=== PATIENT | female | born 1980 | race Caucasian/White ===

== ENCOUNTER 2016-07-29 07:34 | Emergency (ER) | payer OTHER ==
--- NOTE | 2016-07-29 08:26 | XR ---
EXAMINATION TYPE: XR chest 2V DATE OF EXAM ORDERED: 07/29/2016 8:22 AM HISTORY: cough. REFERENCE: Previous study dated 04/24/2015. FINDINGS: The lungs are clear. Pleural spaces are clear. Heart size is normal. IMPRESSION: NORMAL CHEST.
--- NOTE | 2016-07-29 09:00 | ED ---
General Adult HPI - General Chief complaint: Upper Respiratory Infection Stated complaint: cough Time Seen by Provider: 07/29/16 08:07 Source: patient, RN notes reviewed Mode of arrival: ambulatory Limitations: no limitations - History of Present Illness Initial comments: Patient 35-year-old female who presents emergency room today with a chief complaint of cough congestion over the last 3 days. Does admit to positive sputum production it's been white in color. Denies any other complaints associated symptoms. Patient denies any recent fever, chills, shortness of breath, chest pain, back pain, abdominal pain, nausea or vomiting, numbness or tingling, dysuria or hematuria, constipation or diarrhea, headaches or visual changes, or any other complaints. - Related Data Home Medications Medication Instructions Recorded Confirmed Levothyroxine Sodium [Synthroid] 88 mcg PO DAILY 03/01/16 07/29/16 Previous Rx's Medication Instructions Recorded Benzonatate [Tessalon Perles] 100 mg PO TID PRN #20 capsule 07/29/16 methylPREDNISolone Dose Pack 4 mg PO DIRECTED #21 package 07/29/16 [Medrol Dose Pack] Allergies Allergy/AdvReac Type Severity Reaction Status Date / Time sulfamethoxazole Allergy Mild Unknown Verified 03/01/16 23:21 [From Bactrim] trimethoprim [From Bactrim] Allergy Mild Unknown Verified 03/01/16 23:21 aspirin Allergy Rash/Hives Verified 03/01/16 23:20 cefixime [From Suprax] Allergy Unknown Verified 03/01/16 23:20 hydrocodone bitartrate Allergy Rash/Hives Verified 03/01/16 23:20 [From Vicodin] influenza virus vaccine, Allergy Nausea & Verified 03/01/16 23:20 specific Vomiting & [Influenza Virus Diarrhea Vacc,Specific] latex Allergy Rash/Hives Verified 03/01/16 23:20 morphine Allergy Dyspnea Verified 03/01/16 23:20 Sulfa (Sulfonamide Allergy Unknown Verified 03/01/16 23:20 Antibiotics) tesiorganon Allergy Unknown Uncoded 03/01/16 23:20 Childhood Review of Systems ROS Statement: Those systems with pertinent positive or pertinent negative responses have been documented in the HPI. ROS Other: All systems not noted in ROS Statement are negative. Past Medical History Past Medical History: No Reported History, Thyroid Disorder History of Any Multi-Drug Resistant Organisms: None Reported Past Surgical History: Section, Hysterectomy Past Psychological History: Depression Smoking Status: Never smoker Past Alcohol Use History: None Reported Past Drug Use History: Marijuana General Exam - General Exam Comments Initial Comments: General: The patient is awake and alert, in no distress, and does not appear acutely ill. Eye: Pupils are equal, round and reactive to light, extra-ocular movements are intact. No nystagmus. There is normal conjunctiva bilaterally. No signs of icterus. Ears, nose, mouth and throat: There are moist mucous membranes and no oral lesions. Neck: The neck is supple, there is no tenderness or JVD. Cardiovascular: There is a regular rate and rhythm. No murmur, rub or gallop is appreciated. Respiratory: Lungs are clear to auscultation, respirations are non-labored, breath sounds are equal. No wheezes, stridor, rales, or rhonchi. Musculoskeletal: Normal ROM, no tenderness. Strength 5/5. Sensation intact. Pulses equal bilaterally 2+. Neurological: A&O x 3. CN II-XII intact, There are no obvious motor or sensory deficits. Coordination appears grossly intact. Speech is normal. Skin: Skin is warm and dry and no rashes or lesions are noted. Psychiatric: Cooperative, appropriate mood & affect, normal judgment. Limitations: no limitations Course Vital Signs 07/29/16 07/29/16 07:37 07:49 Temperature 98.4 F Pulse Rate 76 Respiratory 18 18 Rate Blood Pressure 113/55 O2 Sat by Pulse 99 Oximetry Medical Decision Making - Medical Decision Making X-ray reviewed and shows no signs of pneumonia. No other acute abnormalities. Advised patient most likely a viral illness will be started on a steroid Dosepak along with cough suppressant for her symptoms. Disposition Clinical Impression: Acute bronchitis Disposition: HOME SELF-CARE Condition: Good Instructions: Upper Respiratory Infection (ED) Additional Instructions: Please use medication as discussed. Please follow-up with family doctor in the next 2 days of symptoms have not improved. Please return to emergency room if the symptoms increase or worsen or for any other concerns. Prescriptions: Benzonatate [Tessalon Perles] 100 mg PO TID PRN #20 capsule PRN Reason: Cough methylPREDNISolone Dose Pack [Medrol Dose Pack] 4 mg PO DIRECTED #21 package Time of Disposition: 09:00
[2016-07-29 09:11] VITALS: BP 128/63; PULSE 71; RESP 16; TEMP 97
== END 2016-07-29 09:08 | disposition home or self-care (01) ==
LOC: EC 07:34
DX: J20.9 Acute bronchitis, unspecified (principal); J06.9 Acute upper respiratory infection, unspecified; E07.9 Disorder of thyroid, unspecified; Z79.52 Long term (current) use of systemic steroids; Z88.2 Allergy status to sulfonamides; Z88.6 Allergy status to analgesic agent; Z88.1 Allergy status to other antibiotic agents; Z88.8 Allergy status to other drugs, medicaments and biological substances; Z88.7 Allergy status to serum and vaccine; Z91.040 Latex allergy status; Z88.5 Allergy status to narcotic agent
CPT/HCPCS: 71020; 99283

== ENCOUNTER 2017-02-20 13:43 | Emergency (ER) | payer OTHER ==
[2017-02-20 14:33] LABS: Basophils # (A) 0.1 k/uL (0-0.2); Basophils % (A) 1 %; CH 32.3; CHCM 36.1; Eosinophils # (A) 0.2 k/uL (0-0.7); Eosinophils % (A) 2 %; HCT 42.1 % (34.0-46.0); HDW 2.55; HGB 14.5 gm/dL (11.4-16.0); Luc # (Auto) 0.14; Luc % (Auto) 2; Lymphocytes # (A) 2.2 k/uL (1.0-4.8); Lymphocytes % (A) 25 %; MCHC 34.5 g/dL (31.0-37.0); MCV 89.7 fL (80.0-100.0); Mean Platelet Volume 7.7; Monocytes # (A) 0.4 k/uL (0-1.0); Monocytes % (A) 5 %; Neutrophils # (A) 5.7 k/uL (1.3-7.7); Neutrophils % (A) 65 %; RBC 4.69 m/uL (3.80-5.40); RDW 12.8 % (11.5-15.5); WBC 8.7 k/uL (3.8-10.6); WBC (Perox) 8.36
--- NOTE | 2017-02-20 14:33 | ED ---
Dizziness HPI - General Chief Complaint: Dizziness Stated Complaint: Dizziness Time Seen by Provider: 02/20/17 13:53 Source: patient Mode of arrival: ambulatory Limitations: no limitations - History of Present Illness Initial Comments: This patient is a 36-year-old woman who complains of having what she is describing as dizziness, including a sense of instability and like the room is spinning. She states this been going on for 1 week. She feels that it is getting a little bit worse over that interval. She did see her clinic physician and was given a prescription for Antivert and told that she has vertigo. She states that it feels like the Antivert makes the symptoms get worse so she stopped taking that. Patient denies any preceding trauma or upper respiratory symptoms. She denies any other neurologic symptoms, including no change in vision or hearing, trouble with speech or swallowing, weakness or numbness. Patient denies headache. MD Complaint: dizziness Onset/Timin -: week(s) Timing: gradual onset Description: "room spinning" History of Same: No History of Trauma: No Severity: moderate Improves With: nothing Worsens With: other (Medication) Associated Symptoms: denies other symptoms - Related Data Home Medications Medication Instructions Recorded Confirmed Levothyroxine Sodium [Synthroid] 88 mcg PO HS 03/01/16 02/20/17 Ibuprofen [Motrin] 600 mg PO DAILY PRN 02/20/17 02/20/17 Ranitidine HCl [Zantac] 150 mg PO DAILY PRN 02/20/17 02/20/17 Allergies Allergy/AdvReac Type Severity Reaction Status Date / Time sulfamethoxazole Allergy Mild Unknown Verified 02/20/17 14:57 [From Bactrim] trimethoprim [From Bactrim] Allergy Mild Unknown Verified 02/20/17 14:57 aspirin Allergy Rash/Hives Verified 02/20/17 14:57 cefixime [From Suprax] Allergy Unknown Verified 02/20/17 14:57 hydrocodone bitartrate Allergy Rash/Hives Verified 02/20/17 14:57 [From Vicodin] influenza virus vaccine, Allergy Nausea & Verified 02/20/17 14:57 specific Vomiting & [Influenza Virus Diarrhea Vacc,Specific] latex Allergy Rash/Hives Verified 02/20/17 14:57 morphine Allergy Dyspnea Verified 02/20/17 14:57 Sulfa (Sulfonamide Allergy Unknown Verified 02/20/17 14:57 Antibiotics) tesiorganon Allergy Unknown Uncoded 02/20/17 13:50 Childhood Review of Systems ROS Statement: Those systems with pertinent positive or pertinent negative responses have been documented in the HPI. ROS Other: All systems not noted in ROS Statement are negative. Constitutional: Denies: fever, chills, weakness Eyes: Denies: vision change ENT: Denies: ear pain, congestion Respiratory: Denies: cough, dyspnea Cardiovascular: Denies: chest pain, palpitations, syncope Gastrointestinal: Denies: abdominal pain, vomiting Musculoskeletal: Denies: back pain Skin: Denies: rash Neurological: Reports: vertigo. Denies: headache, weakness, numbness, paresthesias, confusion Past Medical History Past Medical History: Thyroid Disorder Additional Past Medical History / Comment(s): vertigo History of Any Multi-Drug Resistant Organisms: None Reported Past Surgical History: Section, Hysterectomy Past Psychological History: Anxiety Smoking Status: Never smoker Past Alcohol Use History: None Reported Past Drug Use History: None Reported General Exam Limitations: no limitations General appearance: alert, in no apparent distress Head exam: Present: atraumatic, normocephalic, normal inspection Eye exam: Present: normal appearance, PERRL, EOMI. Absent: scleral icterus, conjunctival injection, nystagmus ENT exam: Present: normal oropharynx, TM's normal bilaterally Neck exam: Present: normal inspection Respiratory exam: Present: normal lung sounds bilaterally. Absent: respiratory distress, wheezes, rales, rhonchi, stridor Cardiovascular Exam: Present: regular rate, normal rhythm, normal heart sounds. Absent: systolic murmur, diastolic murmur, rubs, gallop GI/Abdominal exam: Present: soft. Absent: distended, tenderness, guarding, rebound, rigid, mass Extremities exam: Present: normal inspection, normal capillary refill. Absent: pedal edema, calf tenderness Back exam: Present: normal inspection. Absent: CVA tenderness (R), CVA tenderness (L) Neurological exam: Present: alert, CN II-XII intact. Absent: motor sensory deficit Skin exam: Present: warm, dry, intact, normal color. Absent: rash Course Vital Signs 02/20/17 02/20/17 02/20/17 13:47 14:47 15:25 Temperature 98.7 F 98.2 F Pulse Rate 91 78 Pulse Rate [ 75 Sitting] Pulse Rate [ 93 Standing] Pulse Rate [ 71 Supine] Respiratory 18 16 Rate Blood Pressure 136/84 115/66 Blood Pressure 111/70 [Sitting] Blood Pressure 118/86 [Standing] Blood Pressure 115/67 [Supine] O2 Sat by Pulse 97 96 Oximetry EKG Findings - EKG Results: EKG: interpreted by PRINCESS ALBERT (rate 78), sinus rhythm, normal axis, normal QRS, normal ST/T, no acute changes - [place], Pacemaker, Normal: Normal tracing: normal tracing Medical Decision Making - Lab Data Result diagrams: 02/20/17 14:19 02/20/17 14:19 Lab Results 02/20/17 02/20/17 Range/Units 14:19 14:19 WBC 8.7 (3.8-10.6) k/uL RBC 4.69 (3.80-5.40) m/uL Hgb 14.5 (11.4-16.0) gm/dL Hct 42.1 (34.0-46.0) % MCV 89.7 (80.0-100.0) fL MCH 31.0 (25.0-35.0) pg MCHC 34.5 (31.0-37.0) g/dL RDW 12.8 (11.5-15.5) % Plt Count 283 (150-450) k/uL Neutrophils % 65 % Lymphocytes % 25 % Monocytes % 5 % Eosinophils % 2 % Basophils % 1 % Neutrophils # 5.7 (1.3-7.7) k/uL Lymphocytes # 2.2 (1.0-4.8) k/uL Monocytes # 0.4 (0-1.0) k/uL Eosinophils # 0.2 (0-0.7) k/uL Basophils # 0.1 (0-0.2) k/uL Sodium 140 (137-145) mmol/L Potassium 3.9 (3.5-5.1) mmol/L Chloride 105 (98-107) mmol/L Carbon Dioxide 26 (22-30) mmol/L Anion Gap 9 mmol/L BUN 10 (7-17) mg/dL Creatinine 0.85 (0.52-1.04) mg/dL Est GFR (MDRD) Af Amer >60 (>60 ml/min/1.73 sqM) Est GFR (MDRD) Non-Af >60 (>60 ml/min/1.73 sqM) Glucose 103 H (74-99) mg/dL Calcium 9.6 (8.4-10.2) mg/dL Total Bilirubin 0.4 (0.2-1.3) mg/dL AST 21 (14-36) U/L ALT 38 (9-52) U/L Alkaline Phosphatase 56 (38-126) U/L Total Protein 7.0 (6.3-8.2) g/dL Albumin 4.1 (3.5-5.0) g/dL TSH 3.030 (0.465-4.680) mIU/L Disposition Clinical Impression: Vertigo Disposition: HOME SELF-CARE Condition: Fair Instructions: Dizziness (ED) Referrals: Felicita Mondragon MD [Primary Care Provider] - 1-2 days Jordy Webster MD [STAFF PHYSICIAN] - 1-2 days
[2017-02-20 14:46] LABS: ALT 38 U/L (9-52); AST 21 U/L (14-36); Alkaline Phosphatase 56 U/L (38-126); Anion Gap 9 mmol/L; Blood Urea Nitrogen 10 mg/dL (7-17); Calcium 9.6 mg/dL (8.4-10.2); Carbon Dioxide 26 mmol/L (22-30); Chloride 105 mmol/L (98-107); Glucose 103 mg/dL (74-99); Non-African American GFR(MDRD) >60 (>60 ml/min/1.73 sqM); Potassium 3.9 mmol/L (3.5-5.1); Sodium 140 mmol/L (137-145); Total Bilirubin 0.4 mg/dL (0.2-1.3)
--- NOTE | 2017-02-20 15:11 | CT ---
EXAMINATION TYPE: CT brain wo con DATE OF EXAM: 02/20/2017 COMPARISON: NONE HISTORY: 36-year-old female Lightheadedness and dizziness x 1 week. TECHNIQUE: Examination was done in axial plane without intravenous contrast. Coronal and sagittal r econstructions performed. CT DLP: 987.00 mGycm Automated exposure control for dose reduction was used. FINDINGS: There is no evidence of acute intracranial hemorrhage, acute ischemic changes, mass, mass-effect, or extra-axial fluid collection. There is no effacement of cerebral sulci or basal subarachnoid cister ns. There is no hydrocephalus. There is no midline shift. Hong-white matter distinction is preserv ed. Paranasal sinuses and mastoid air cells are well pneumatized. Orbits and globes are intact. IMPRESSION: No acute intracranial abnormality seen.
[2017-02-20 15:26] VITALS: BP 115/66; PULSE 78; RESP 16; TEMP 98.2
== END 2017-02-20 16:04 | disposition home or self-care (01) ==
LOC: EC 13:43
DX: R42 Dizziness and giddiness (principal); E07.9 Disorder of thyroid, unspecified; Z79.899 Other long term (current) drug therapy; Z88.2 Allergy status to sulfonamides; Z88.7 Allergy status to serum and vaccine; Z88.6 Allergy status to analgesic agent; Z88.5 Allergy status to narcotic agent; Z88.8 Allergy status to other drugs, medicaments and biological substances
CPT/HCPCS: 36415; 70450; 80053; 84443; 85025; 93005; 99284

== ENCOUNTER → 2019-06-15 | Outpatient (CLI) | payer OTHER ==
--- NOTE | 2019-06-15 11:13 | XR ---
EXAMINATION TYPE: XR shoulder complete LT DATE OF EXAM: 06/15/2019 COMPARISON: NONE HISTORY: Pain TECHNIQUE: Two views are submitted. FINDINGS: The osseous structures are intact. There is no acute fracture or dislocation. The AC joint is maint ained. IMPRESSION: 1. No acute process.
== END | disposition home or self-care (01) ==
LOC: RADXRMAIN 10:50
PROVIDERS: ATTEND Internal Medicine
DX: M25.512 Pain in left shoulder (principal)

== ENCOUNTER → 2019-06-25 | Outpatient (CLI) | payer OTHER ==
--- NOTE | 2019-06-25 20:01 | MR ---
EXAMINATION TYPE: MR shoulder LT wo con DATE OF EXAM: 06/25/2019 COMPARISON: Plain film 06/15/2019 HISTORY: Lt shoulder pain x 1 mos, no trauma TECHNIQUE: Multiplanar, multisequence imaging of the left shoulder is performed without contrast. FINDINGS: Rotator Cuff: There is no serenity tear. Increased signal within the tendon is suggestive of tendinosis. Acromioclavicular Joint: Arthropathy is present at the acromioclavicular joint, there is mass effect on the musculotendinous junction of supraspinatus Glenohumeral Joint: Intact Labrum: The labrum appears grossly intact given limitation of non-arthrogram study. Biceps Tendon: The long head of biceps is in normal location within bicipital groove. Bone marrow signal: No focal abnormal marrow signal is appreciated. Other: Fluid signal is present in the subacromial subdeltoid bursa. IMPRESSION: No serenity rotator cuff tear, correlate for impingement with associated tendinosis of the rotator cuff.
== END | disposition home or self-care (01) ==
LOC: RADMRIMAIN 18:45
PROVIDERS: ATTEND Internal Medicine
DX: M25.512 Pain in left shoulder (principal)

== ENCOUNTER → 2019-12-14 | Outpatient (CLI) | payer OTHER ==
[2019-12-14 13:33] LABS: HCT 43.9 % (34.0-46.0); HGB 14.5 gm/dL (11.4-16.0); MCH 30.3 pg (25.0-35.0); MCV 92.1 fL (80.0-100.0); Mean Platelet Volume 8.1; Platelet Count 294 k/uL (150-450); RBC 4.77 m/uL (3.80-5.40); RDW 11.9 % (11.5-15.5); WBC 7.9 k/uL (3.8-10.6)
[2019-12-14 17:41] LABS: Albumin/Globulin Ratio 1.67 (1.60-3.17); Anion Gap 5.9 mmol/L (4.00-12.00); Calcium 8.9 mg/dL (8.7-10.3); Carbon Dioxide 28.1 mmol/L (21.6-31.8); Globulin 2.4 g/dL (1.6-3.3); Non-African American GFR(CKD) 79.4 (60.0-200.0); Potassium 4.3 mmol/L (3.5-5.5); Total Bilirubin 0.5 mg/dL (0.2-1.2); Total Protein 6.4 g/dL (6.2-8.2)
[2019-12-14 17:49] LABS: T4, Free (Free Thyroxine) 0.8 ng/dL (0.80-1.80)
== END | disposition home or self-care (01) ==
LOC: LABWHC1 12:24
PROVIDERS: ATTEND Internal Medicine
DX: E03.9 Hypothyroidism, unspecified (principal); R41.3 Other amnesia
CPT/HCPCS: 36415; 80053; 82607; 84439; 84443; 85027

== ENCOUNTER 2020-01-13 18:27 | Emergency (ER) | payer OTHER ==
[2020-01-13] MEDS ORDERED: ACETAMINOPHEN TAB 500 MG TAB PO STA ×2 (18:43→19:44)
[2020-01-13] MEDS ORDERED: SODIUM CHLORIDE 0.9% 1,000 ML IV ONE (18:44)
[2020-01-13] MEDS ORDERED: ONDANSETRON 4 MG/2 ML VIAL IVP STA (18:44)
[2020-01-13 19:15] VITALS: TEMP 100.3
--- NOTE | 2020-01-13 19:26 | XR ---
EXAMINATION TYPE: XR chest 1V portable DATE OF EXAM: 01/13/2020 COMPARISON: 07/29/2016 HISTORY: Cough TECHNIQUE: FINDINGS: Heart and mediastinum are normal. Lungs are clear. Diaphragm is normal. Bony thorax appears normal. IMPRESSION: Normal chest. No change.
[2020-01-13 19:27] LABS: Basophils # (A) 0.1 k/uL (0-0.2); Basophils % (A) 1 %; Eosinophils # (A) 0.1 k/uL (0-0.7); Eosinophils % (A) 2 %; HCT 39.2 % (34.0-46.0); HGB 13.4 gm/dL (11.4-16.0); Lymphocytes # (A) 2.1 k/uL (1.0-4.8); Lymphocytes % (A) 32 %; MCH 30.8 pg (25.0-35.0); MCHC 34.2 g/dL (31.0-37.0); Mean Platelet Volume 7.5; Monocytes # (A) 0.3 k/uL (0-1.0); Monocytes % (A) 4 %; Neutrophils # (A) 3.7 k/uL (1.3-7.7); Neutrophils % (A) 56 %; Platelet Count 178 k/uL (150-450); RBC 4.35 m/uL (3.80-5.40); RDW 12.2 % (11.5-15.5); WBC 6.5 k/uL (3.8-10.6)
[2020-01-13 19:36] LABS: Partial Thromboplastin Time 23.4 sec (22.0-30.0); Prothrombin Time 10.6 sec (9.0-12.0)
[2020-01-13 19:42] LABS: ALT 49 U/L (4-34); AST 40 U/L (14-36); African American GFR (CKD) >90 (>60 ml/min/1.73 sqM); Albumin 4.1 g/dL (3.5-5.0); Alkaline Phosphatase 59 U/L (38-126); Anion Gap 6 mmol/L; Blood Urea Nitrogen 15 mg/dL (7-17); C Reactive Protein 15.8 mg/L (<10.0); Calcium 8.6 mg/dL (8.4-10.2); Carbon Dioxide 27 mmol/L (22-30); Chloride 101 mmol/L (98-107); Glucose 105 mg/dL (74-99); LDH 776 U/L (313-618); Non-African American GFR(CKD) 87 (>60 ml/min/1.73 sqM); Potassium 3.7 mmol/L (3.5-5.1); Sodium 134 mmol/L (137-145); Total Bilirubin 0.8 mg/dL (0.2-1.3)
[2020-01-13] MEDS ORDERED: IBUPROFEN 600 MG TAB PO STA (19:44)
--- NOTE | 2020-01-13 19:55 | ED ---
General Adult HPI - General Chief complaint: Fever Stated complaint: Fever, shortness of breath, body aches Time Seen by Provider: 01/13/20 18:38 Source: patient, RN notes reviewed, old records reviewed Mode of arrival: ambulatory Limitations: no limitations - History of Present Illness Initial comments: Patient is a 39-year-old female who presents emergency department today with fever., Chest pain with breathing and burning in her chest, complaining of body aches and shortness of breath. She reports she is a nonsmoker. She reports that she has no known contact with positive coated patient's but she believes she has the symptoms. She does complain occasional diarrhea and a sore throat and general body aches. Patient states that she has been having low-grade temperatures and taking Motrin and Tylenol. - Related Data Home Medications Medication Instructions Recorded Confirmed Levothyroxine Sodium [Synthroid] 88 mcg PO HS 03/01/16 02/20/17 Ibuprofen [Motrin] 600 mg PO DAILY PRN 02/20/17 02/20/17 Ranitidine HCl [Zantac] 150 mg PO DAILY PRN 02/20/17 02/20/17 Allergies Allergy/AdvReac Type Severity Reaction Status Date / Time sulfamethoxazole Allergy Mild Unknown Verified 01/13/20 18:31 [From Bactrim] trimethoprim [From Bactrim] Allergy Mild Unknown Verified 01/13/20 18:31 aspirin Allergy Rash/Hives Verified 01/13/20 18:31 cefixime [From Suprax] Allergy Unknown Verified 01/13/20 18:31 hydrocodone bitartrate Allergy Rash/Hives Verified 01/13/20 18:31 [From Vicodin] influenza virus vaccine, Allergy Nausea & Verified 01/13/20 18:31 specific Vomiting & [Influenza Virus Diarrhea Vacc,Specific] latex Allergy Rash/Hives Verified 01/13/20 18:31 morphine Allergy Dyspnea Verified 01/13/20 18:31 Sulfa (Sulfonamide Allergy Unknown Verified 01/13/20 18:31 Antibiotics) tesiorganon Allergy Unknown Uncoded 01/13/20 18:31 Childhood Review of Systems ROS Statement: Those systems with pertinent positive or pertinent negative responses have been documented in the HPI. ROS Other: All systems not noted in ROS Statement are negative. Past Medical History Past Medical History: Thyroid Disorder Additional Past Medical History / Comment(s): vertigo History of Any Multi-Drug Resistant Organisms: None Reported Past Surgical History: Section, Hysterectomy Past Psychological History: Anxiety Smoking Status: Never smoker Past Alcohol Use History: None Reported Past Drug Use History: None Reported General Exam - General Exam Comments Initial Comments: 39-year-old female. Alert and oriented. Limitations: no limitations General appearance: alert, in no apparent distress Head exam: Present: atraumatic, normocephalic, normal inspection Eye exam: Present: normal appearance, PERRL, EOMI. Absent: scleral icterus, conjunctival injection, periorbital swelling ENT exam: Present: normal exam, mucous membranes moist Neck exam: Present: normal inspection. Absent: tenderness, meningismus, lym phadenopathy Respiratory exam: Present: normal lung sounds bilaterally. Absent: respiratory distress, wheezes, rales, rhonchi, stridor Cardiovascular Exam: Present: regular rate, normal rhythm, normal heart sounds. Absent: systolic murmur, diastolic murmur, rubs, gallop, clicks GI/Abdominal exam: Present: soft, normal bowel sounds. Absent: distended, tenderness, guarding, rebound, rigid Extremities exam: Present: normal inspection, full ROM, normal capillary refill. Absent: tenderness, pedal edema, joint swelling, calf tenderness Back exam: Present: normal inspection Neurological exam: Present: alert, oriented X3, CN II-XII intact Psychiatric exam: Present: normal affect Skin exam: Present: warm, dry, intact, normal color. Absent: rash Course Vital Signs 01/13/20 01/13/20 01/13/20 18:29 19:14 20:30 Temperature 98.9 F 100.3 F H Pulse Rate 83 71 Respiratory 20 18 Rate Blood Pressure 107/68 115/69 O2 Sat by Pulse 99 Oximetry Medical Decision Making - Medical Decision Making 39-year-old female presents with 5 days of fever, malaise nausea, and burning c hest pain taking a deep breath. Patient has no leg swelling, she has been around public as she works at [employer]. She states that she is concerned for possible Covid. She reports her family members have similar symptoms but they're Covid test was negative. Patient is given IV fluids labwork obtained. She was found to have a low-grade temperature of 100.3 was given Tylenol Motrin. Patient's really has a mildly elevated CRP and LDH. Discussed likely possible COVID at this time. Discussed self quarantine. Discussed strict return parameters. - Lab Data Result diagrams: 01/13/20 19:02 01/13/20 19: Lab Results 01/13/20 01/13/20 01/13/20 Range/Units 19:02 19: 19: WBC 6.5 (3.8-10.6) k/uL RBC 4.35 (3.80-5.40) m/uL Hgb 13.4 (11.4-16.0) gm/dL Hct 39.2 (34.0-46.0) % MCV 90.0 (80.0-100.0) fL MCH 30.8 (25.0-35.0) pg MCHC 34.2 (31.0-37.0) g/dL RDW 12.2 (11.5-15.5) % Plt Count 178 (150-450) k/uL Neutrophils % 56 % Lymphocytes % 32 % Monocytes % 4 % Eosinophils % 2 % Basophils % 1 % Neutrophils # 3.7 (1.3-7.7) k/uL Lymphocytes # 2.1 (1.0-4.8) k/uL Monocytes # 0.3 (0-1.0) k/uL Eosinophils # 0.1 (0-0.7) k/uL Basophils # 0.1 (0-0.2) k/uL PT 10.6 (9.0-12.0) sec INR 1.0 (<1.2) APTT 23.4 (22.0-30.0) sec Sodium 134 L (137-145) mmol/L Potassium 3.7 (3.5-5.1) mmol/L Chloride 101 (98-107) mmol/L Carbon Dioxide 27 (22-30) mmol/L Anion Gap 6 mmol/L BUN 15 (7-17) mg/dL Creatinine 0.84 (0.52-1.04) mg/dL Est GFR (CKD-EPI)AfAm >90 (>60 ml/min/1.73 sqM) Est GFR (CKD-EPI)NonAf 87 (>60 ml/min/1.73 sqM) Glucose 105 H (74-99) mg/dL Plasma Lactic Acid Tito (0.7-2.0) mmol/L Calcium 8.6 (8.4-10.2) mg/dL Magnesium 2.0 (1.6-2.3) mg/dL Total Bilirubin 0.8 (0.2-1.3) mg/dL AST 40 H (14-36) U/L ALT 49 H (4-34) U/L Alkaline Phosphatase 59 (38-126) U/L Lactate Dehydrogenase 776 H (313-618) U/L C-Reactive Protein 15.8 H (<10.0) mg/L Total Protein 7.0 (6.3-8.2) g/dL Albumin 4.1 (3.5-5.0) g/dL 01/13/20 Range/Units 19:02 WBC (3.8-10.6) k/uL RBC (3.80-5.40) m/uL Hgb (11.4-16.0) gm/dL Hct (34.0-46.0) % MCV (80.0-100.0) fL MCH (25.0-35.0) pg MCHC (31.0-37.0) g/dL RDW (11.5-15.5) % Plt Count (150-450) k/uL Neutrophils % % Lymphocytes % % Monocytes % % Eosinophils % % Basophils % % Neutrophils # (1.3-7.7) k/uL Lymphocytes # (1.0-4.8) k/uL Monocytes # (0-1.0) k/uL Eosinophils # (0-0.7) k/uL Basophils # (0-0.2) k/uL PT (9.0-12.0) sec INR (<1.2) APTT (22.0-30.0) sec Sodium (137-145) mmol/L Potassium (3.5-5.1) mmol/L Chloride (98-107) mmol/L Carbon Dioxide (22-30) mmol/L Anion Gap mmol/L BUN (7-17) mg/dL Creatinine (0.52-1.04) mg/dL Est GFR (CKD-EPI)AfAm (>60 ml/min/1.73 sqM) Est GFR (CKD-EPI)NonAf (>60 ml/min/1.73 sqM) Glucose (74-99) mg/dL Plasma Lactic Acid Tito 0.7 (0.7-2.0) mmol/L Calcium (8.4-10.2) mg/dL Magnesium (1.6-2.3) mg/dL Total Bilirubin (0.2-1.3) mg/dL AST (14-36) U/L ALT (4-34) U/L Alkaline Phosphatase (38-126) U/L Lactate Dehydrogenase (313-618) U/L C-Reactive Protein (<10.0) mg/L Total Protein (6.3-8.2) g/dL Albumin (3.5-5.0) g/dL 01/13/20 19:58 EKG shows normal sinus rhythm and normal EKG. Ventricular rate of 80 bpm. Intervals 1:30 milliseconds. QRS duration was 84 ms. QT QTc is 370/426 ms. - Radiology Data Radiology results: report reviewed Chest x-ray is negative for any acute cardiopulmonary process. Disposition Clinical Impression: Suspected COVID-19 virus infection Disposition: HOME SELF-CARE Condition: Good Instructions (If sedation given, give patient instructions): Fever in Adults (ED) Additional Instructions: Alternate Tylenol and Motrin for fever. Patient should follow up with primary care physician. Patient should self quarantined for 14 days. Return to emergency department if there becomes worsening difficulty breathing or other significant complaints. Is patient prescribed a controlled substance at d/c from ED?: No Referrals: Nereyda Diaz MD [Primary Care Provider] - 1-2 days Time of Disposition: 20:21
[2020-01-13 20:33] VITALS: BP 115/69; PULSE 71; RESP 18
[2020-01-14 13:11] LABS: Ferritin 387.2 ng/mL (10.0-291.0)
== END 2020-01-13 20:32 | disposition home or self-care (01) ==
LOC: EC 18:27
DX: R50.9 Fever, unspecified (principal); R11.0 Nausea; R53.81 Other malaise; R12 Heartburn; R79.82 Elevated C-reactive protein (CRP); R07.1 Chest pain on breathing; E07.9 Disorder of thyroid, unspecified; Z79.890 Hormone replacement therapy; Z88.2 Allergy status to sulfonamides; Z88.5 Allergy status to narcotic agent; Z88.6 Allergy status to analgesic agent; Z88.7 Allergy status to serum and vaccine; Z88.8 Allergy status to other drugs, medicaments and biological substances; Z91.040 Latex allergy status; Z20.828 Contact with and (suspected) exposure to other viral communicable diseases
CPT/HCPCS: 99284; 96374; 96361; 36415; 93005; 80053; 82728; 83605; 83615; 83735; 85025; 85610; 85730; 86140; 87040; 84145; 71045; U0003; J2405

== ENCOUNTER 2020-01-20 10:00 | Emergency (ER) | payer OTHER ==
[2020-01-20 10:11] VITALS: RESP 18
[2020-01-20] MEDS ORDERED: ACETAMINOPHEN TAB 325 MG TAB PO STA (10:15)
[2020-01-20] MEDS ORDERED: IBUPROFEN 600 MG TAB PO STA (10:15)
--- NOTE | 2020-01-20 10:38 | ED ---
Fever HPI - General Chief Complaint: Fever Stated Complaint: fever, body aches Time Seen by Provider: 01/20/20 10:15 Source: patient Mode of arrival: ambulatory Limitations: no limitations - History of Present Illness Initial Comments: 39-year-old female presenting today for chief complaint of fever or nausea. Patient states that she has had nausea and fever for the past week. She states she also has accompanying body aches. Patient denies any localizing pain. She denies any vomiting diarrhea denies chest pain or shortness of breath. Patient denies sore throat, cough or URI symptoms. Denies RLQ, or RUQ pain. Patient states entire body aches. Patient states she used to have history of thyroid disorder. Patient denies any other significant history. Patient presented last week for evaluation and had a fever. States they could not figure out what was wrong and covid testing was (-). Patient states at one point during this week she began to feel better but the fever returned. Upon arrival patient appears well nontoxic, no distress. She is febrile and did not take any medications. - Related Data Home Medications Medication Instructions Recorded Confirmed Acetaminophen [Tylenol] 650 mg PO Q4H PRN 01/20/20 01/20/20 Ibuprofen [Advil] 400 mg PO Q8HR PRN 01/20/20 01/20/20 SUMAtriptan succinate [Imitrex] 50 mg PO DAILY PRN 01/20/20 01/20/20 Allergies Allergy/AdvReac Type Severity Reaction Status Date / Time sulfamethoxazole Allergy Mild Unknown Verified 01/20/20 10:43 [From Bactrim] trimethoprim [From Bactrim] Allergy Mild Unknown Verified 01/20/20 10:43 aspirin Allergy Rash/Hives Verified 01/20/20 10:43 cefixime [From Suprax] Allergy Unknown Verified 01/20/20 10:43 hydrocodone bitartrate Allergy Rash/Hives Verified 01/20/20 10:43 [From Vicodin] influenza virus vaccine, Allergy Nausea & Verified 01/20/20 10:43 specific Vomiting & [Influenza Virus Diarrhea Vacc,Specific] latex Allergy Rash/Hives Verified 01/20/20 10:43 morphine Allergy Dyspnea Verified 01/20/20 10:43 Sulfa (Sulfonamide Allergy Unknown Verified 01/20/20 10:43 Antibiotics) tesiorganon Allergy Unknown Uncoded 01/13/20 18:31 Childhood Review of Systems ROS Statement: Those systems with pertinent positive or pertinent negative responses have been documented in the HPI. ROS Other: All systems not noted in ROS Statement are negative. Past Medical History Past Medical History: Thyroid Disorder Additional Past Medical History / Comment(s): vertigo History of Any Multi-Drug Resistant Organisms: None Reported Past Surgical History: Section, Hysterectomy Past Psychological History: Anxiety Smoking Status: Never smoker Past Alcohol Use History: None Reported Past Drug Use History: None Reported General Exam - General Exam Comments Initial Comments: General: The patient is awake and alert, in no distress Eye: +3 mm pupils are equal, round and reactive to light, extra-ocular movements are intact. No nystagmus. There is normal conjunctiva bilaterally. No signs of icterus. No photophobia Ears, nose, mouth and throat: There are moist mucous membranes and no oral lesions. Oropharynx was not erythematous there is no tonsillar enlargement exudates or lesions. Uvula midline. Tympanic membranes are not erythematous or is no effusions bulging or retraction. No tenderness to palpation of the mastoid. No anterior cervical lymphadenopathy. Rhinorrhea, clear and bilateral nares. No tripoding, no drooling. Neck: The neck is supple, there is no tenderness or JVD. No nuchal rigidity negative Brudzinski and Kernig Cardiovascular: There is a regular rate and rhythm. No murmur, rub or gallop is appreciated. Respiratory: Lungs are clear to auscultation, respirations are non-labored, breath sounds are equal. No wheezes, stridor, rales, or rhonchi. No retractions or abdominal breathing. Gastrointestinal: Soft, non-distended, non-tender abdomen without masses or organomegaly noted. There is no rebound or guarding present. Bowel sounds are unremarkable. Musculoskeletal: Normal ROM, no tenderness. Strength 5/5. Sensation intact. Radial pulses equal bilaterally 2+. Neurological: A&O x 3. CN II-XII intact grossly, There are no obvious motor or sensory deficits. Coordination appears grossly intact. Speech appears normal, no muffling. Skin: Skin is warm and dry and no rashes or lesions are noted. No extremity edema Psychiatric: Cooperative Limitations: no limitations Course Vital Signs 08/09/20 08/09/20 08/09/20 10:09 11:20 14:11 Temperature 100.2 F H 97 F L 98.5 F Pulse Rate 91 98 87 Respiratory 18 18 Rate Blood Pressure 104/66 116/73 O2 Sat by Pulse 98 96 Oximetry Medical Decision Making - Medical Decision Making 19-year-old feel presenting today for chief complaint of fever body aches ongoing for a week. She denies significant upper respiratory symptoms denies any focalizing symptoms aside from nausea. Patient no right upper quadrant right lower quadrant abdominal pain patient did have some transaminitis, US (-) for liver/GB process aside from fatty liver. Heterophile (-) Hepatitis A (-). Patient states her entire body hurts including head neck but states not localzed to neck no neck stiffnes. no nuchal rigidity on exam. Patient LEDBETTER resolved with ibuprofen and tylenol. Patient case and EKg reviewd with attenidng provider Dr. Peterson who is agreeable to care plan and discharge with PCP f/u. Ventricular rate 97 bpm, FL interval 118 ms, QRS durations 74 ms, QT/QTC 346/439ms. Patient has no ST elevation or depression. - Lab Data Result diagrams: 01/20/20 11:00 01/20/20 11:00 Lab Results 01/20/20 01/20/20 01/20/20 Range/Units 11:00 11:00 11:00 WBC 6.8 (3.8-10.6) k/uL RBC 4.34 (3.80-5.40) m/uL Hgb 13.1 (11.4-16.0) gm/dL Hct 38.9 (34.0-46.0) % MCV 89.5 (80.0-100.0) fL MCH 30.1 (25.0-35.0) pg MCHC 33.6 (31.0-37.0) g/dL RDW 12.9 (11.5-15.5) % Plt Count 209 (150-450) k/uL Neutrophils % 60 % Lymphocytes % 30 % Monocytes % 4 % Eosinophils % 2 % Basophils % 1 % Neutrophils # 4.1 (1.3-7.7) k/uL Lymphocytes # 2.1 (1.0-4.8) k/uL Monocytes # 0.3 (0-1.0) k/uL Eosinophils # 0.1 (0-0.7) k/uL Basophils # 0.1 (0-0.2) k/uL Sodium 136 L (137-145) mmol/L Potassium 4.2 (3.5-5.1) mmol/L Chloride 104 (98-107) mmol/L Carbon Dioxide 24 (22-30) mmol/L Anion Gap 8 mmol/L BUN 13 (7-17) mg/dL Creatinine 0.75 (0.52-1.04) mg/dL Est GFR (CKD-EPI)AfAm >90 (>60 ml/min/1.73 sqM) Est GFR (CKD-EPI)NonAf >90 (>60 ml/min/1.73 sqM) Glucose 120 H (74-99) mg/dL Plasma Lactic Acid Tito (0.7-2.0) mmol/L Calcium 8.7 (8.4-10.2) mg/dL Total Bilirubin 0.8 (0.2-1.3) mg/dL AST 57 H (14-36) U/L ALT 92 H (4-34) U/L Alkaline Phosphatase 68 (38-126) U/L Troponin I (0.000-0.034) ng/mL Total Protein 6.8 (6.3-8.2) g/dL Albumin 4.0 (3.5-5.0) g/dL TSH 3.880 (0.465-4.680) mIU/L Urine Color Yellow Urine Appearance Clear (Clear) Urine pH 8.0 (5.0-8.0) Ur Specific [place] 1.023 (1.001-1.035) Urine Protein Trace H (Negative) Urine Glucose (UA) Negative (Negative) Urine Ketones Negative (Negative) Urine Blood Negative (Negative) Urine Nitrite Negative (Negative) Urine Bilirubin Negative (Negative) Urine Urobilinogen <2.0 (<2.0) mg/dL Ur Leukocyte Esterase Negative (Negative) Hepatitis A IgM Ab Heterophile Antibody (Negative) 01/20/20 01/20/20 01/20/20 Range/Units 11:00 11:00 11:00 WBC (3.8-10.6) k/uL RBC (3.80-5.40) m/uL Hgb (11.4-16.0) gm/dL Hct (34.0-46.0) % MCV (80.0-100.0) fL MCH (25.0-35.0) pg MCHC (31.0-37.0) g/dL RDW (11.5-15.5) % Plt Count (150-450) k/uL Neutrophils % % Lymphocytes % % Monocytes % % Eosinophils % % Basophils % % Neutrophils # (1.3-7.7) k/uL Lymphocytes # (1.0-4.8) k/uL Monocytes # (0-1.0) k/uL Eosinophils # (0-0.7) k/uL Basophils # (0-0.2) k/uL Sodium (137-145) mmol/L Potassium (3.5-5.1) mmol/L Chloride (98-107) mmol/L Carbon Dioxide (22-30) mmol/L Anion Gap mmol/L BUN (7-17) mg/dL Creatinine (0.52-1.04) mg/dL Est GFR (CKD-EPI)AfAm (>60 ml/min/1.73 sqM) Est GFR (CKD-EPI)NonAf (>60 ml/min/1.73 sqM) Glucose (74-99) mg/dL Plasma Lactic Acid Tito 0.9 (0.7-2.0) mmol/L Calcium (8.4-10.2) mg/dL Total Bilirubin (0.2-1.3) mg/dL AST (14-36) U/L ALT (4-34) U/L Alkaline Phosphatase (38-126) U/L Troponin I <0.012 (0.000-0.034) ng/mL Total Protein (6.3-8.2) g/dL Albumin (3.5-5.0) g/dL TSH (0.465-4.680) mIU/L Urine Color Urine Appearance (Clear) Urine pH (5.0-8.0) Ur Specific [place] (1.001-1.035) Urine Protein (Negative) Urine Glucose (UA) (Negative) Urine Ketones (Negative) Urine Blood (Negative) Urine Nitrite (Negative) Urine Bilirubin (Negative) Urine Urobilinogen (<2.0) mg/dL Ur Leukocyte Esterase (Negative) Hepatitis A IgM Ab Heterophile Antibody Negative (Negative) 01/20/20 Range/Units 11:48 WBC (3.8-10.6) k/uL RBC (3.80-5.40) m/uL Hgb (11.4-16.0) gm/dL Hct (34.0-46.0) % MCV (80.0-100.0) fL MCH (25.0-35.0) pg MCHC (31.0-37.0) g/dL RDW (11.5-15.5) % Plt Count (150-450) k/uL Neutrophils % % Lymphocytes % % Monocytes % % Eosinophils % % Basophils % % Neutrophils # (1.3-7.7) k/uL Lymphocytes # (1.0-4.8) k/uL Monocytes # (0-1.0) k/uL Eosinophils # (0-0.7) k/uL Basophils # (0-0.2) k/uL Sodium (137-145) mmol/L Potassium (3.5-5.1) mmol/L Chloride (98-107) mmol/L Carbon Dioxide (22-30) mmol/L Anion Gap mmol/L BUN (7-17) mg/dL Creatinine (0.52-1.04) mg/dL Est GFR (CKD-EPI)AfAm (>60 ml/min/1.73 sqM) Est GFR (CKD-EPI)NonAf (>60 ml/min/1.73 sqM) Glucose (74-99) mg/dL Plasma Lactic Acid Tito (0.7-2.0) mmol/L Calcium (8.4-10.2) mg/dL Total Bilirubin (0.2-1.3) mg/dL AST (14-36) U/L ALT (4-34) U/L Alkaline Phosphatase (38-126) U/L Troponin I (0.000-0.034) ng/mL Total Protein (6.3-8.2) g/dL Albumin (3.5-5.0) g/dL TSH (0.465-4.680) mIU/L Urine Color Urine Appearance (Clear) Urine pH (5.0-8.0) Ur Specific [place] (1.001-1.035) Urine Protein (Negative) Urine Glucose (UA) (Negative) Urine Ketones (Negative) Urine Blood (Negative) Urine Nitrite (Negative) Urine Bilirubin (Negative) Urine Urobilinogen (<2.0) mg/dL Ur Leukocyte Esterase (Negative) Hepatitis A IgM Ab NEGATIVE Heterophile Antibody (Negative) Disposition Clinical Impression: Fever of unknown origin, Body aches Disposition: HOME SELF-CARE Condition: Good Instructions (If sedation given, give patient instructions): Fever in Adults (ED) Additional Instructions: Please use medication as discussed. Please follow-up with family doctor in the next 2 days. Please return to emergency room if the symptoms increase or worsen or for any other concerns. Is patient prescribed a controlled substance at d/c from ED?: No Referrals: Nereyda Diaz MD [Primary Care Provider] - 1-2 days Time of Disposition: 13:23
[2020-01-20 11:07] LABS: Basophils # (A) 0.1 k/uL (0-0.2); Basophils % (A) 1 %; Eosinophils # (A) 0.1 k/uL (0-0.7); Eosinophils % (A) 2 %; HCT 38.9 % (34.0-46.0); HGB 13.1 gm/dL (11.4-16.0); Lymphocytes # (A) 2.1 k/uL (1.0-4.8); Lymphocytes % (A) 30 %; MCH 30.1 pg (25.0-35.0); MCHC 33.6 g/dL (31.0-37.0); MCV 89.5 fL (80.0-100.0); Mean Platelet Volume 7.6; Monocytes # (A) 0.3 k/uL (0-1.0); Monocytes % (A) 4 %; Neutrophils # (A) 4.1 k/uL (1.3-7.7); Neutrophils % (A) 60 %; Platelet Count 209 k/uL (150-450); RBC 4.34 m/uL (3.80-5.40); RDW 12.9 % (11.5-15.5); WBC 6.8 k/uL (3.8-10.6)
[2020-01-20 11:12] LABS: Appearance,Urine Clear (Clear); Bilirubin,Urine Negative (Negative); Blood,Urine Negative (Negative); Color,Urine Yellow; Glucose,Urine (UA) Negative (Negative); Ketones,Urine Negative (Negative); Leukocyte Esterase,Urine Negative (Negative); Nitrite,Urine Negative (Negative); Protein,Urine Trace (Negative); Specific Gravity,Urine 1.023 (1.001-1.035); Urobilinogen,Urine <2.0 mg/dL (<2.0)
[2020-01-20 11:15] LABS: ALT 92 U/L (4-34); AST 57 U/L (14-36); African American GFR (CKD) >90 (>60 ml/min/1.73 sqM); Alkaline Phosphatase 68 U/L (38-126); Anion Gap 8 mmol/L; Blood Urea Nitrogen 13 mg/dL (7-17); Calcium 8.7 mg/dL (8.4-10.2); Carbon Dioxide 24 mmol/L (22-30); Chloride 104 mmol/L (98-107); Glucose 120 mg/dL (74-99); Non-African American GFR(CKD) >90 (>60 ml/min/1.73 sqM); Potassium 4.2 mmol/L (3.5-5.1); Sodium 136 mmol/L (137-145); Total Bilirubin 0.8 mg/dL (0.2-1.3); Total Protein 6.8 g/dL (6.3-8.2)
[2020-01-20] MEDS ORDERED: ONDANSETRON 4 MG/2 ML VIAL IVP STA (11:22)
--- NOTE | 2020-01-20 11:30 | XR ---
EXAMINATION TYPE: XR chest 2V DATE OF EXAM: 01/20/2020 CLINICAL HISTORY: Fever, nausea, body aches TECHNIQUE: Frontal and lateral views of the chest are obtained. COMPARISON: 01/13/2020 chest radiograph FINDINGS: The cardiomediastinal silhouette is within normal limits for size. Pulmonary vasculature i s normal. There is no focal air space opacity, pleural effusion, or pneumothorax seen. The osseous st ructures are intact. IMPRESSION: No acute cardiopulmonary process.
[2020-01-20 12:46] LABS: Hepatitis A Antibody IgM NEGATIVE
--- NOTE | 2020-01-20 13:14 | US ---
EXAMINATION TYPE: US abdomen limited DATE OF EXAM: 01/20/2020 COMPARISON: NONE CLINICAL HISTORY: Enzymes increased, fever. EXAM MEASUREMENTS: Liver Length: 13.1 cm Gallbladder Wall: 0.3cm CBD: 04 cm Right Kidney: 11.5 x 3.6 x 4.9 cm Pancreas: visualized portions normal Liver: Increased attenuation. Gallbladder: No stones seen. No evidence of gallbladder wall thickening or pericholecystic fluid. Sonography reports negative sonographic Gotti's sign. CBD: Normal. Right Kidney: Normal. IMPRESSION: 1. Fatty liver.
[2020-01-20 14:12] VITALS: BP 116/73; PULSE 87; TEMP 98.5
[2020-01-21 10:56] LABS: Hepatitis B Core IgM Non-Reactive (Non-Reactive); Hepatitis B Surface Antigen Non-Reactive (Non-Reactive); Hepatitis C IgG Antibody Non-Reactive (Non-Reactive)
== END 2020-01-20 14:12 | disposition home or self-care (01) ==
LOC: EC 10:00
DX: R50.9 Fever, unspecified (principal); R52 Pain, unspecified; R11.0 Nausea; R74.0 Nonspecific elevation of levels of transaminase and lactic acid dehydrogenase [LDH]; K76.0 Fatty (change of) liver, not elsewhere classified; Z88.2 Allergy status to sulfonamides; Z88.6 Allergy status to analgesic agent; Z91.040 Latex allergy status; Z88.5 Allergy status to narcotic agent; Z88.1 Allergy status to other antibiotic agents; Z88.7 Allergy status to serum and vaccine; Z90.710 Acquired absence of both cervix and uterus; Z20.828 Contact with and (suspected) exposure to other viral communicable diseases
CPT/HCPCS: 36415; 93005; 80053; 80074; 84443; 83605; 84484; 85025; 86308; 81003; 87040; 71046; 76705; 99284; 96374; U0003; J2405

== ENCOUNTER 2020-02-06 06:56 | Emergency (ER) | payer OTHER ==
[2020-02-06 07:02] VITALS: RESP 18
[2020-02-06] MEDS ORDERED: PANTOPRAZOLE 40 MG/10 ML VIAL IVP STA (07:16)
[2020-02-06] MEDS ORDERED: KETOROLAC 15 MG/ML 1 ML VIAL IVP STA (07:16)
[2020-02-06] MEDS ORDERED: ONDANSETRON 4 MG/2 ML VIAL IVP STA (07:16)
[2020-02-06] MEDS ORDERED: SODIUM CHLORIDE 0.9% 2,000 ML IV STA (07:16)
--- NOTE | 2020-02-06 07:18 | ED ---
Abdominal Pain HPI - General Chief Complaint: Abdominal Pain Stated Complaint: NVD,Headache Time Seen by Provider: 02/06/20 07:08 Source: patient, RN notes reviewed, old records reviewed Mode of arrival: ambulatory Limitations: no limitations - History of Present Illness Initial Comments: Patient is a 39-year-old female who presents emergency department today with chief complaint of abdominal pain nausea and diarrhea for the past 4 weeks. She also states that she has had pressure with laying down. Patient states that she has had no vomiting but is some has feel nauseated. Patient denies any travel history. She seen twice in the emergency department for this complaint of diarrhea as well as seen her PCP twice. She states that they did plain have her follow-up with a academic intern however she's not been able to set up an appointment at this time. Patient denies any fevers or chills at this time. - Related Data Home Medications Medication Instructions Recorded Confirmed Ibuprofen [Advil] 400 mg PO Q6H PRN 01/20/20 02/06/20 Acetaminophen Tab [Tylenol Tab] 1,000 mg PO Q6HR PRN 02/06/20 02/06/20 Ondansetron HCl [Zofran] 4 mg PO BID PRN 02/06/20 02/06/20 Previous Rx's Medication Instructions Recorded Amoxic-Pot Clav 875-125Mg 1 tab PO Q12HR #20 tablet 02/06/20 [Augmentin 875-125] Allergies Allergy/AdvReac Type Severity Reaction Status Date / Time sulfamethoxazole Allergy Mild Unknown Verified 02/06/20 08:01 [From Bactrim] trimethoprim [From Bactrim] Allergy Mild Unknown Verified 02/06/20 08:01 aspirin Allergy Rash/Hives Verified 02/06/20 08:01 cefixime [From Suprax] Allergy Unknown Verified 02/06/20 08:01 hydrocodone bitartrate Allergy Rash/Hives Verified 02/06/20 08:01 [From Vicodin] influenza virus vaccine, Allergy Nausea & Verified 02/06/20 08:01 specific Vomiting & [Influenza Virus Diarrhea Vacc,Specific] latex Allergy Rash/Hives Verified 02/06/20 08:01 morphine Allergy Dyspnea Verified 02/06/20 08:01 Sulfa (Sulfonamide Allergy Unknown Verified 02/06/20 08:01 Antibiotics) tesiorganon Allergy Unknown Uncoded 02/06/20 07:02 Childhood Review of Systems ROS Statement: Those systems with pertinent positive or pertinent negative responses have been documented in the HPI. ROS Other: All systems not noted in ROS Statement are negative. Past Medical History Past Medical History: Thyroid Disorder Additional Past Medical History / Comment(s): vertigo History of Any Multi-Drug Resistant Organisms: None Reported Past Surgical History: Section, Hysterectomy Past Psychological History: Anxiety Smoking Status: Never smoker Past Alcohol Use History: None Reported Past Drug Use History: None Reported General Exam - General Exam Comments Initial Comments: 39 year old female, no distress. Limitations: no limitations General appearance: alert, in no apparent distress Head exam: Present: atraumatic, normocephalic, normal inspection Eye exam: Present: normal appearance, PERRL, EOMI. Absent: scleral icterus, conjunctival injection, periorbital swelling ENT exam: Present: normal exam, mucous membranes moist Neck exam: Present: normal inspection. Absent: tenderness, meningismus, lymphadenopathy Respiratory exam: Present: normal lung sounds bilaterally. Absent: respiratory distress, wheezes, rales, rhonchi, stridor Cardiovascular Exam: Present: regular rate, normal rhythm, normal heart sounds. Absent: systolic murmur, diastolic murmur, rubs, gallop, clicks GI/Abdominal exam: Present: soft, normal bowel sounds. Absent: distended, tenderness, guarding, rebound, rigid Extremities exam: Present: normal inspection, full ROM, normal capillary refill. Absent: tenderness, pedal edema, joint swelling, calf tenderness Back exam: Present: normal inspection Neurological exam: Present: alert, oriented X3, CN II-XII intact Psychiatric exam: Present: normal affect, normal mood Skin exam: Present: warm, dry, intact, normal color. Absent: rash Course Vital Signs 02/06/20 02/06/20 02/06/20 06:59 08:08 10:14 Temperature 98.5 F 98 F Pulse Rate 89 85 83 Respiratory 18 18 18 Rate Blood Pressure 110/76 113/65 115/79 O2 Sat by Pulse 100 98 97 Oximetry Medical Decision Making - Medical Decision Making [id number] female presents with 4 weeks of diarrhea. She states that she's had no significant vomiting lately but has been nauseous. She has been evaluated twice in the emergency department and twice a PCP. Today she had a computed tomography scan which is officer colitis. She denies bloody stool. Unable to have a bowel movement and emergency arm. Patient be sent home with tools and orders to collect stool sample. In the meantime we'll treat the Patient for colitis with Augmentin. Advised follow-up with PCP. - Lab Data Result diagrams: 02/06/20 07:30 02/06/20 07:30 Lab Results 02/06/20 02/06/20 02/06/20 Range/Units 07:30 07:30 07:30 WBC 9.2 (3.8-10.6) k/uL RBC 4.07 (3.80-5.40) m/uL Hgb 12.3 (11.4-16.0) gm/dL Hct 37.2 (34.0-46.0) % MCV 91.3 (80.0-100.0) fL MCH 30.1 (25.0-35.0) pg MCHC 33.0 (31.0-37.0) g/dL RDW 13.8 (11.5-15.5) % Plt Count 227 (150-450) k/uL Neutrophils % 42 % Lymphocytes % 47 % Monocytes % 4 % Eosinophils % 2 % Basophils % 1 % Neutrophils # 3.9 (1.3-7.7) k/uL Lymphocytes # 4.3 (1.0-4.8) k/uL Monocytes # 0.3 (0-1.0) k/uL Eosinophils # 0.2 (0-0.7) k/uL Basophils # 0.1 (0-0.2) k/uL PT 10.5 (9.0-12.0) sec INR 1.0 (<1.2) APTT 25.7 (22.0-30.0) sec Sodium (137-145) mmol/L Potassium (3.5-5.1) mmol/L Chloride (98-107) mmol/L Carbon Dioxide (22-30) mmol/L Anion Gap mmol/L BUN (7-17) mg/dL Creatinine (0.52-1.04) mg/dL Est GFR (CKD-EPI)AfAm (>60 ml/min/1.73 sqM) Est GFR (CKD-EPI)NonAf (>60 ml/min/1.73 sqM) Glucose (74-99) mg/dL Plasma Lactic Acid Tito (0.7-2.0) mmol/L Calcium (8.4-10.2) mg/dL Total Bilirubin (0.2-1.3) mg/dL AST (14-36) U/L ALT (4-34) U/L Alkaline Phosphatase (38-126) U/L Total Protein (6.3-8.2) g/dL Albumin (3.5-5.0) g/dL Amylase (30-110) U/L Lipase (23-300) U/L Urine Color Yellow Urine Appearance Cloudy H (Clear) Urine pH 5.5 (5.0-8.0) Ur Specific [place] 1.024 (1.001-1.035) Urine Protein Trace H (Negative) Urine Glucose (UA) Negative (Negative) Urine Ketones Negative (Negative) Urine Blood Negative (Negative) Urine Nitrite Negative (Negative) Urine Bilirubin Negative (Negative) Urine Urobilinogen <2.0 (<2.0) mg/dL Ur Leukocyte Esterase Negative (Negative) Urine RBC <1 (0-5) /hpf Urine WBC 3 (0-5) /hpf Ur Squamous Epith Cells 7 H (0-4) /hpf Calcium Oxalate Crystal Few H (None) /hpf Urine Mucus Many H (None) /hpf 02/06/20 02/06/20 Range/Units 07:30 07:30 WBC (3.8-10.6) k/uL RBC (3.80-5.40) m/uL Hgb (11.4-16.0) gm/dL Hct (34.0-46.0) % MCV (80.0-100.0) fL MCH (25.0-35.0) pg MCHC (31.0-37.0) g/dL RDW (11.5-15.5) % Plt Count (150-450) k/uL Neutrophils % % Lymphocytes % % Monocytes % % Eosinophils % % Basophils % % Neutrophils # (1.3-7.7) k/uL Lymphocytes # (1.0-4.8) k/uL Monocytes # (0-1.0) k/uL Eosinophils # (0-0.7) k/uL Basophils # (0-0.2) k/uL PT (9.0-12.0) sec INR (<1.2) APTT (22.0-30.0) sec Sodium 135 L (137-145) mmol/L Potassium 4.5 (3.5-5.1) mmol/L Chloride 103 (98-107) mmol/L Carbon Dioxide 27 (22-30) mmol/L Anion Gap 5 mmol/L BUN 14 (7-17) mg/dL Creatinine 0.84 (0.52-1.04) mg/dL Est GFR (CKD-EPI)AfAm >90 (>60 ml/min/1.73 sqM) Est GFR (CKD-EPI)NonAf 87 (>60 ml/min/1.73 sqM) Glucose 133 H (74-99) mg/dL Plasma Lactic Acid Tito 0.9 (0.7-2.0) mmol/L Calcium 8.8 (8.4-10.2) mg/dL Total Bilirubin 0.6 (0.2-1.3) mg/dL AST 64 H (14-36) U/L ALT 83 H (4-34) U/L Alkaline Phosphatase 70 (38-126) U/L Total Protein 6.2 L (6.3-8.2) g/dL Albumin 3.4 L (3.5-5.0) g/dL Amylase 40 (30-110) U/L Lipase 126 (23-300) U/L Urine Color Urine Appearance (Clear) Urine pH (5.0-8.0) Ur Specific [place] (1.001-1.035) Urine Protein (Negative) Urine Glucose (UA) (Negative) Urine Ketones (Negative) Urine Blood (Negative) Urine Nitrite (Negative) Urine Bilirubin (Negative) Urine Urobilinogen (<2.0) mg/dL Ur Leukocyte Esterase (Negative) Urine RBC (0-5) /hpf Urine WBC (0-5) /hpf Ur Squamous Epith Cells (0-4) /hpf Calcium Oxalate Crystal (None) /hpf Urine Mucus (None) /hpf - Radiology Data Radiology results: report reviewed Mild wall thickening in the right hemicolon is reflect nonspecific colitis. Correlate clinically. Bili.. Left ovary with fluid or cyst measuring up to 1.5 cm. Disposition Clinical Impression: Colitis, Diarrhea Disposition: HOME SELF-CARE Condition: Stable Instructions (If sedation given, give patient instructions): Colitis (ED) Additional Instructions: Please use medication as discussed. Please follow up with family doctor if symptoms have not improved over the next two days. Please return to the emergency room if your symptoms increase or worsen or for any other concerns. Prescriptions: Amoxic-Pot Clav 875-125Mg [Augmentin 875-125] 1 tab PO Q12HR #20 tablet Is patient prescribed a controlled substance at d/c from ED?: No Referrals: Nereyda Diaz MD [Primary Care Provider] - 1-2 days Time of Disposition: 10:04
[2020-02-06 07:41] LABS: Basophils # (A) 0.1 k/uL (0-0.2); Basophils % (A) 1 %; Eosinophils # (A) 0.2 k/uL (0-0.7); Eosinophils % (A) 2 %; HCT 37.2 % (34.0-46.0); HGB 12.3 gm/dL (11.4-16.0); Lymphocytes # (A) 4.3 k/uL (1.0-4.8); Lymphocytes % (A) 47 %; MCH 30.1 pg (25.0-35.0); MCV 91.3 fL (80.0-100.0); Mean Platelet Volume 7.1; Monocytes # (A) 0.3 k/uL (0-1.0); Monocytes % (A) 4 %; Neutrophils # (A) 3.9 k/uL (1.3-7.7); Neutrophils % (A) 42 %; Platelet Count 227 k/uL (150-450); RBC 4.07 m/uL (3.80-5.40); RDW 13.8 % (11.5-15.5); WBC 9.2 k/uL (3.8-10.6)
[2020-02-06 07:49] LABS: Partial Thromboplastin Time 25.7 sec (22.0-30.0); Prothrombin Time 10.5 sec (9.0-12.0)
[2020-02-06 07:51] LABS: ALT 83 U/L (4-34); AST 64 U/L (14-36); African American GFR (CKD) >90 (>60 ml/min/1.73 sqM); Albumin 3.4 g/dL (3.5-5.0); Alkaline Phosphatase 70 U/L (38-126); Amylase 40 U/L (30-110); Anion Gap 5 mmol/L; Blood Urea Nitrogen 14 mg/dL (7-17); Calcium 8.8 mg/dL (8.4-10.2); Carbon Dioxide 27 mmol/L (22-30); Chloride 103 mmol/L (98-107); Glucose 133 mg/dL (74-99); Non-African American GFR(CKD) 87 (>60 ml/min/1.73 sqM); Potassium 4.5 mmol/L (3.5-5.1); Sodium 135 mmol/L (137-145); Total Bilirubin 0.6 mg/dL (0.2-1.3); Total Protein 6.2 g/dL (6.3-8.2)
[2020-02-06] MEDS ORDERED: SODIUM CHLORIDE 0.9% 1,000 ML IV SCH (08:00)
[2020-02-06 08:15] LABS: Appearance,Urine Cloudy (Clear); Bilirubin,Urine Negative (Negative); Blood,Urine Negative (Negative); Calcium Oxalate Crystals,Urine Few /hpf; Color,Urine Yellow; Glucose,Urine (UA) Negative (Negative); Ketones,Urine Negative (Negative); Leukocyte Esterase,Urine Negative (Negative); Mucus,Urine Many /hpf; Nitrite,Urine Negative (Negative); PH, Urine 5.5 (5.0-8.0); Protein,Urine Trace (Negative); RBC,Urine <1 /hpf (0-5); Specific Gravity,Urine 1.024 (1.001-1.035); Squamous Epithelial Cell,Urine 7 /hpf (0-4); Urobilinogen,Urine <2.0 mg/dL (<2.0); WBC,Urine 3 /hpf (0-5)
--- NOTE | 2020-02-06 09:16 | CT ---
EXAMINATION TYPE: CT abdomen pelvis w con DATE OF EXAM: 02/06/2020 COMPARISON: 01/08/2010 HISTORY: Fever, abdominal pain, and diarrhea. CT DLP: 1161.2 mGycm CONTRAST: CT scan of the abdomen and pelvis is performed without Oral Contrast and with IV Contrast, patient in jected with 100 mL of Isovue 300. FINDINGS: LUNG BASES-: No visible nodule. No infiltrate. LIVER/GB: No calcified gallstones. No space occupying hepatic lesion. Biliary tree is of normal ca liber. PANCREAS: No inflammation. No distinct mass. SPLEEN: Splenomegaly measuring 14.5 cm craniocaudal dimension. No lesion seen. ADRENALS: No nodule. No thickening. KIDNEYS/BLADDER: No hydronephrosis. No nephrolithiasis. No distinct renal mass. Urinary bladder g rossly unremarkable. BOWEL: Normal appendix. Wall thickening cecum and ascending colon may reflect colitis on nonspecific type. GENITAL ORGANS: Fullness left ovary with several follicular cysts noted measuring up to 1.5 cm. Unre markable right ovary. Hysterectomy changes. Small amount of free fluid within the pelvis. LYMPH NODES: No greater than 1cm abdominal or pelvic lymph nodes are appreciated. AORTA: No significant abnormality. OSSEOUS STRUCTURES: No significant abnormality is seen. OTHER: No significant additional abnormality is seen. IMPRESSION: 1. Mild wall thickening right hemicolon as noted may reflect nonspecific colitis. Correlate clinicall y. 2. Splenomegaly. 3. Fullness left ovary with the follicular cysts measuring up to 1.5 cm.
[2020-02-06 10:15] VITALS: BP 115/79; PULSE 83; TEMP 98
== END 2020-02-06 10:14 | disposition home or self-care (01) ==
LOC: EC 06:56
DX: K52.9 Noninfective gastroenteritis and colitis, unspecified (principal); Z88.1 Allergy status to other antibiotic agents; Z88.5 Allergy status to narcotic agent; Z88.2 Allergy status to sulfonamides; Z88.6 Allergy status to analgesic agent; Z88.7 Allergy status to serum and vaccine; Z88.8 Allergy status to other drugs, medicaments and biological substances; Z91.040 Latex allergy status
CPT/HCPCS: 36415; 93005; 80053; 82150; 83605; 83690; 85025; 85610; 85730; 81001; 74177; 99285; 96374; 96375 ×2; J2405; J1885; C9113; Q9967

== ENCOUNTER → 2020-03-11 | Outpatient (CLI) | payer OTHER ==
[2020-03-12 04:04] LABS: Albumin 4.1 g/dL (3.80-4.90); Albumin/Globulin Ratio 1.95 (1.60-3.17); Bilirubin, Conjugated 0.2 mg/dL (0.20-0.40); Bilirubin,Unconjugated 0.3 mg/dL; Globulin 2.1 g/dL (1.6-3.3); Total Bilirubin 0.5 mg/dL (0.2-1.2); Total Protein 6.2 g/dL (6.2-8.2)
[2020-03-12 06:46] LABS: Gliadin AB IgA, Deaminated NEGATIVE (NEGATIVE); Gliadin AB IgA, Unit 5.2 U/mL; Gliadin AB IgG, Deaminated NEGATIVE (NEGATIVE)
== END | disposition home or self-care (01) ==
LOC: LABWHC1 12:29
PROVIDERS: ATTEND Physician Assistant
DX: R10.9 Unspecified abdominal pain (principal); R74.8 Abnormal levels of other serum enzymes; R63.4 Abnormal weight loss
CPT/HCPCS: 36415; 80076; 83516; 84443

== ENCOUNTER 2020-03-31 11:25 | Day surgery (SDC) | payer OTHER ==
[2020-03-27 13:01] VITALS: BMI 29.2
[2020-03-31] MEDS ORDERED: LACTATED RINGERS 1,000 ML IV SCH ×2 (11:31)
[2020-03-31 11:48] VITALS: TEMP 96.9
[2020-03-31] MEDS ORDERED: PROPOFOL 10 MG/ML 20 ML VIAL IV ONE (13:22)
[2020-03-31 13:55] VITALS: RESP 16
--- NOTE | 2020-03-31 13:58 | P.PCN ---
Date of Procedure: 03/31/20 Description of Procedure: BRIEF HISTORY: Patient is a 39-year-old female presenting for outpatient colonoscopy for evaluation of diarrhea and altered bowel function. Patient reports symptoms of frequent loose bowel movements. She is been seen in the hospital with complaints of abdominal pain and altered bowel function. PROCEDURE PERFORMED: Colonoscopy with biopsy. PREOPERATIVE DIAGNOSIS: Diarrhea, altered bowel function. ESTIMATED BLOOD LOSS: Minimal. IV sedation per Anesthesia. PROCEDURE: After informed consent was obtained, the patient, was brought into the endoscopy unit. IV sedation was administered by Anesthesia under continuous monitoring. Digital rectal examination was normal. Initially the Olympus CF-190 flexible video colonoscope was then inserted in the rectum, gradually advanced into the cecum without any difficulty. Careful examination was performed as the scope was gradually being withdrawn. Ileocecal valve and the appendiceal orifice were visualized and appeared normal. Prep was excellent. Mucosa of the cecum, ascending colon, transverse colon, descending colon, sigmoid colon, and rectum appeared normal, with random biopsies taken of the right left colon the setting of diarrhea and altered bowel function. The terminal ileum was intubated and appeared normal biopsies taken. Retroflexion was performed in the rectum and no lesions were seen, low-grade internal hemorrhoids seen. The patient tolerated the procedure well. IMPRESSION: Normal-appearing colon from rectum to cecum and normal-appearing terminal ileum with random biopsies taken of the right colon, left colon and terminal ileum. RECOMMENDATIONS: Findings of this examination were discussed with the patient and her [id number]. Okay to resume diet. Okay to resume medications. Await pathology from biopsies. Follow up in the GI clinic next week for results of biopsies as scheduled.
[2020-03-31 14:26] VITALS: BP 137/73; PULSE 68
== END 2020-03-31 15:03 | disposition home or self-care (01) ==
LOC: ORWHC2ENDO 11:25
PROVIDERS: ATTEND Internal Medicine
DX: R19.7 Diarrhea, unspecified (principal); E07.9 Disorder of thyroid, unspecified; Z79.890 Hormone replacement therapy; Z79.899 Other long term (current) drug therapy; Z88.2 Allergy status to sulfonamides; Z88.1 Allergy status to other antibiotic agents; Z88.0 Allergy status to penicillin; Z88.6 Allergy status to analgesic agent; Z88.5 Allergy status to narcotic agent; Z91.040 Latex allergy status; Z88.8 Allergy status to other drugs, medicaments and biological substances; Z90.710 Acquired absence of both cervix and uterus; Z98.51 Tubal ligation status; Z98.891 History of uterine scar from previous surgery
CPT/HCPCS: 88305; 45380; J2704

== ENCOUNTER → 2020-04-04 | Outpatient (CLI) | payer OTHER ==
--- NOTE | 2020-04-05 15:22 | US ---
EXAMINATION TYPE: US thyroid st tissue head/neck DATE OF EXAM: 04/04/2020 COMPARISON: NONE CLINICAL HISTORY: R94.6 Abnormal results of thyroid function studies. Abnormal labs on thyroid meds GLAND SIZE: Right Lobe: 3.3 x 1.6 x 1.4 cm Overall Parenchyma: heterogenous, with increased vascularity Left Lobe: 2.8 x 1.7 x 1.2 cm Overall Parenchyma: heterogeneous, with increased vascularity Isthmus Thickness: .3 cm NODULES RIGHT: # of nodules measured on right: 0 LEFT: # of nodules measured on left: 0 ISTHMUS: # of nodules measured in the isthmus: 0 Bilateral neck scanned, no evidence of lymphadenopathy. IMPRESSION: Heterogenous thyroid gland with significantly hypervascularity.
== END | disposition home or self-care (01) ==
LOC: RADUSWWP 16:56
PROVIDERS: ATTEND Family Medicine
DX: R94.6 Abnormal results of thyroid function studies (principal)
CPT/HCPCS: 76536

== ENCOUNTER → 2020-04-21 | Outpatient (CLI) | payer OTHER ==
--- NOTE | 2020-04-22 09:44 | MM ---
Reason for exam: screening (asymptomatic). History: Family history of breast cancer in maternal aunt at age 40. Physical Findings: A clinical breast exam by your physician is recommended on an annual basis and results should be correlated with mammographic findings. MG Screening Mammo w CAD Bilateral CC and MLO view(s) were taken. The breast tissue is heterogeneously dense. This may lower the sensitivity of mammography. There is no discrete abnormality. No significant changes when compared with prior studies. ASSESSMENT: Negative, BI-RAD 1 RECOMMENDATION: Routine screening mammogram of both breasts in 1 year.
== END | disposition home or self-care (01) ==
LOC: RADMAMWWP 09:36
PROVIDERS: ATTEND Family Medicine
DX: Z12.31 Encounter for screening mammogram for malignant neoplasm of breast (principal)
CPT/HCPCS: 77067

== ENCOUNTER → 2020-08-18 | Outpatient (CLI) | payer OTHER ==
--- NOTE | 2020-08-19 04:36 | MR ---
EXAMINATION TYPE: MR shoulder LT wo con DATE OF EXAM: 08/18/2020 COMPARISON: None HISTORY: Left shoulder pain, limited range of motion for 2 months. Multiplanar multiecho imaging of the left shoulder was performed with no contrast. The subscapularis tendon is intact. Glenoid luisana appear normal. The biceps tendon is intact. Subacromial joint space is fairly normal. There is minor spurring on the inferior aspect of the AC emili int. There is no significant subacromial impingement. The supraspinatus tendon appears intact. There is no retraction. There is tiny amount of fluid in the subdeltoid bursa. I see no bony destructive process. There is no evidence of a fracture. Humeral hea d is intact. IMPRESSION: Small amount of fluid in the subdeltoid bursa suggestive of bursitis. No evidence of rotator cuff tea r.
== END | disposition home or self-care (01) ==
LOC: RADMRIMAIN 20:52
PROVIDERS: ATTEND Family Medicine
DX: R93.7 Abnormal findings on diagnostic imaging of other parts of musculoskeletal system (principal); M25.512 Pain in left shoulder; G89.29 Other chronic pain

== ENCOUNTER → 2021-02-09 | Outpatient (CLI) | payer OTHER ==
--- NOTE | 2021-02-09 11:07 | US ---
EXAMINATION TYPE: US abdomen complete DATE OF EXAM: 02/09/2021 COMPARISON: CT 02/06/20, US 01/20/20 CLINICAL HISTORY: R12 heartburn. EXAM MEASUREMENTS: Liver Length: 20.1 cm Gallbladder Wall: 0.2 cm CBD: 0.3 cm Spleen: 12.1 cm Right Kidney: 11.1 x 5.0 x 3.3 cm Left Kidney: 11.7 x 4.9 x 4.6 cm Pancreas: Partially Obscured by bowel gas Liver: Increased attenuation, decreased visualization of vessels suggestive of fatty infiltrate Gallbladder: No stones seen Evidence for sonographic Gotti's sign: No CBD: wnl Spleen: Partially Obscured by overlying bowel gas Right Kidney: No hydronephrosis or masses seen Left Kidney: No hydronephrosis or masses seen Upper IVC: wnl Abd Aorta: wnl The intrahepatic portion of the IVC and proximal abdominal aorta are within normal limits. There is no evidence of cholelithiasis. Common bile duct is unremarkable. The visualized portions of the cline creas are homogenous. The spleen is unremarkable. Kidneys are symmetric and free of hydronephrosis. No renal lesions are seen. IMPRESSION: Correlate for fatty hepatic infiltration.
== END | disposition home or self-care (01) ==
LOC: RADUSWWP 10:24
PROVIDERS: ATTEND Family Medicine
DX: R12 Heartburn (principal)
CPT/HCPCS: 76700

== ENCOUNTER 2021-04-04 13:41 | Emergency (ER) | payer OTHER ==
[2021-04-04 14:05] VITALS: BP 135/70; TEMP 98.6
--- NOTE | 2021-04-04 14:25 | ED ---
General Adult HPI - General Chief complaint: Allergic Reaction Stated complaint: allergic reaction Time Seen by Provider: 04/04/21 14:09 Source: EMS Mode of arrival: EMS Limitations: no limitations - History of Present Illness Initial comments: 40-year-old female presents to the emergency department via EMS for evaluation. Patient states she developed facial numbness, tingling in her lips, and shortness of breath this morning. States she felt like she was "out of it." Reports her daughter called EMS and she was transported here for further evalua tion and treatment. Patient did receive Benadryl, Solu-Medrol, and IV fluids in route. Reports resolution of symptoms, though is feeling groggy. Patient states she thinks she is reacting to Metronidazole cream that she was recently prescribed for vaginal itching. Patient denies fever, headache, chest pain, difficulty breathing, abdominal pain, nausea, vomiting, diarrhea or dysuria at this time. - Related Data Home Medications Medication Instructions Recorded Confirmed Ibuprofen [Advil] 400 mg PO Q6H PRN 01/20/20 03/27/20 Ondansetron HCl [Zofran] 4 mg PO BID PRN 02/06/20 03/27/20 Dicyclomine [Bentyl] 10 mg PO TID 03/27/20 03/27/20 Ergocalciferol [Vitamin D2] 50,000 unit PO Q7D 03/27/20 03/27/20 Levothyroxine Sodium [Synthroid] 25 mcg PO DAILY 03/27/20 03/27/20 Meclizine [Antivert] 25 mg PO BID PRN 03/27/20 03/27/20 Previous Rx's Medication Instructions Recorded EPINEPHrine (Auto Inject) [Epipen] 0.3 mg IM ONCE PRN #2 each 04/04/21 diphenhydrAMINE [Benadryl] 50 mg PO QID PRN #20 cap 04/04/21 Allergies Allergy/AdvReac Type Severity Reaction Status Date / Time sulfamethoxazole Allergy Mild Unknown Verified 02/06/20 08:01 [From Bactrim] trimethoprim [From Bactrim] Allergy Mild Unknown Verified 02/06/20 08:01 aspirin Allergy Rash/Hives Verified 02/06/20 08:01 azithromycin Allergy Dyspnea Verified 03/27/20 12:43 [From Zithromax Z-Pernell] cefixime [From Suprax] Allergy Unknown Verified 02/06/20 08:01 hydrocodone bitartrate Allergy Rash/Hives Verified 02/06/20 08:01 [From Vicodin] influenza virus vaccine, Allergy Nausea & Verified 02/06/20 08:01 specific Vomiting & [Influenza Virus Diarrhea Vacc,Specific] latex Allergy Rash/Hives Verified 02/06/20 08:01 morphine Allergy Dyspnea Verified 02/06/20 08:01 Sulfa (Sulfonamide Allergy Unknown Verified 02/06/20 08:01 Antibiotics) tesiorganon Allergy Unknown Uncoded 02/06/20 07:02 Childhood Review of Systems ROS Statement: Those systems with pertinent positive or pertinent negative responses have been documented in the HPI. ROS Other: All systems not noted in ROS Statement are negative. Past Medical History Past Medical History: Thyroid Disorder Additional Past Medical History / Comment(s): vertigo History of Any Multi-Drug Resistant Organisms: None Reported Past Surgical History: Section, Hysterectomy Past Psychological History: Anxiety Smoking Status: Never smoker General Exam Limitations: no limitations (Well-developed, well-nourished female in no acute distress. Initial temperature 98.6, pulse 81, respirations 16, blood pressure 135/70, pulse ox 99% on room air.) General appearance: alert (Patient is awake and alert but reports feeling groggy), in no apparent distress Eye exam: Present: normal appearance, PERRL, EOMI. Absent: scleral icterus, conjunctival injection, periorbital swelling ENT exam: Present: normal exam, normal oropharynx, mucous membranes moist Neck exam: Present: normal inspection. Absent: tenderness, meningismus, lymphadenopathy Respiratory exam: Present: normal lung sounds bilaterally. Absent: respiratory distress, wheezes, rales, rhonchi, stridor Cardiovascular Exam: Present: regular rate, normal rhythm, normal heart sounds. Absent: systolic murmur, diastolic murmur, rubs, gallop, clicks GI/Abdominal exam: Present: soft, normal bowel sounds. Absent: distended, tenderness, guarding, rebound, rigid Neurological exam: Present: alert, oriented X3, CN II-XII intact Expanded Speech: Present: fluid speech Cranial nerves: EOM's Intact: Normal, Facial Sensation: Normal, Facial Palsy with Forehead Movement: Normal Eye Response: (4) open spontaneously Motor Response: (6) obeys commands Verbal Response: (5) oriented Psychiatric exam: Present: normal affect, normal mood Skin exam: Present: warm, dry, intact, normal color. Absent: rash Course Vital Signs 04/04/21 04/04/21 13:56 16:41 Temperature 98.6 F Pulse Rate 81 74 Respiratory 16 18 Rate Blood Pressure 135/70 O2 Sat by Pulse 99 97 Oximetry Medical Decision Making - Medical Decision Making 40 year old female was evaluated for ALLERGIC reaction. Symptoms resolved prior to arrival. EMS intervention. No significant Physical exam findings noted. Lung sounds are clear to auscultation, no oral edema. Patient was given oral famotidine and monitored for any return of symptoms. Patient expresses readiness for discharge. This case was discussed with the attending Dr. Herrrea. She'll be discharged Home with Benadryl and EpiPen. Patient was instructed to discontinue her metronidazole cream and follow-up with her primary care provider for a recheck, as well as further direction on treatment of possible vaginal infection. Return parameters were discussed in detail, including any return of symptoms or development of new symptoms such as chest pain, chest tightness, shortness of breath, or difficulty breathing. Patient verbalizes understanding and agrees with this plan. Family present at bedside. Disposition Clinical Impression: Allergic reaction Disposition: HOME SELF-CARE Condition: Stable Instructions (If sedation given, give patient instructions): General Allergic Reaction (ED) Additional Instructions: Stop taking the metronidazole (vaginal cream) If you take Benadryl, do not drive. Follow-up with your primary care provider on Tuesday for recheck. Return to the emergency department with any return of, new, worsening, or concerning symptoms. Prescriptions: diphenhydrAMINE [Benadryl] 50 mg PO QID PRN #20 cap PRN Reason: Allergic Reaction EPINEPHrine (Auto Inject) [Epipen] 0.3 mg IM ONCE PRN #2 each PRN Reason: Anaphylaxis Is patient prescribed a controlled substance at d/c from ED?: No Referrals: Eusebia Meehan MD [Primary Care Provider] - 1-2 days Time of Disposition: 16:26
[2021-04-04] MEDS ORDERED: FAMOTIDINE 20 MG TAB PO STA (15:47)
[2021-04-04 16:42] VITALS: PULSE 74; RESP 18
== END 2021-04-04 16:42 | disposition home or self-care (01) ==
LOC: EC 13:41
DX: T78.40XA Allergy, unspecified, initial encounter (principal); E07.9 Disorder of thyroid, unspecified; Z88.1 Allergy status to other antibiotic agents; Z88.2 Allergy status to sulfonamides; Z88.5 Allergy status to narcotic agent; Z91.040 Latex allergy status; Z88.6 Allergy status to analgesic agent; Z88.7 Allergy status to serum and vaccine; Z88.8 Allergy status to other drugs, medicaments and biological substances; Z79.890 Hormone replacement therapy
CPT/HCPCS: 99284

== ENCOUNTER 2021-08-12 17:19 | Emergency (ER) | payer OTHER ==
[2021-08-12 17:26] VITALS: RESP 18; TEMP 98.2
[2021-08-12] MEDS ORDERED: KETOROLAC 15 MG/ML 1 ML VIAL IM STA (17:52)
--- NOTE | 2021-08-12 18:16 | XR ---
EXAMINATION TYPE: XR shoulder complete LT DATE OF EXAM: 08/12/2021 COMPARISON: 06/15/2019 HISTORY: Chest pain. Shoulder pain TECHNIQUE: 3 views FINDINGS: There is no evidence of fracture nor dislocation. Glenohumeral joint is intact. There are n o pathologic calcifications. IMPRESSION: Negative left shoulder exam. No change.
--- NOTE | 2021-08-12 18:17 | XR ---
EXAMINATION TYPE: XR wrist complete LT DATE OF EXAM: 08/12/2021 COMPARISON: NONE HISTORY: Fall. Pain TECHNIQUE: 4 views FINDINGS: There is no evidence of fracture nor dislocation. Metacarpals are intact. Carpal bones are intact. Joint spaces are normal. IMPRESSION: Negative left wrist exam. No fracture.
--- NOTE | 2021-08-12 18:18 | XR ---
EXAMINATION TYPE: XR forearm LT DATE OF EXAM: 08/12/2021 COMPARISON: NONE HISTORY: Fall. Pain TECHNIQUE: 2 views FINDINGS: Radius and ulna appear intact. I see no fracture nor dislocation. Elbow joint and wrist angie nt appear intact. There is a very small spur on the olecranon process of the ulna. IMPRESSION: Negative left forearm exam.
--- NOTE | 2021-08-12 18:20 | XR ---
EXAMINATION TYPE: XR femur LT DATE OF EXAM: 08/12/2021 COMPARISON: None HISTORY: Fall. Pain TECHNIQUE: 4 views FINDINGS: Acetabulum appears intact. The femur is intact. Knee joint spaces are fairly normal. There is no sign of any joint effusion. IMPRESSION: Negative left femur exam.
--- NOTE | 2021-08-12 18:21 | XR ---
EXAMINATION TYPE: XR Hip Complete LT DATE OF EXAM: 08/12/2021 COMPARISON: NONE HISTORY: Pain. Fall TECHNIQUE: 2 views FINDINGS: I see no fracture nor dislocation. Hip joint space is fairly normal. There is no hip dyspla adam. Acetabulum is intact. Sacroiliac joint appears normal. IMPRESSION: Negative left hip exam.
--- NOTE | 2021-08-12 18:23 | ED ---
Fall HPI - General Chief Complaint: Fall Stated Complaint: Fall/Lt Side Pain Time Seen by Provider: 08/12/21 17:36 Source: patient, RN notes reviewed Mode of arrival: ambulatory - History of Present Illness Initial Comments: This is a 40 year old female who presents to the emergency department after sustaining a fall yesterday. She slipped in her garage and landed on her left si de. Most of her pain is in the left hip and left shoulder. She has pain radiating from the left hip into the left leg. Her left arm is the most painful near the shoulder when trying to elevate her arm. She is able to ambulate. Denies hitting her head or any LOC before or after the fall. She has tried motrin for her pain with only minimal relief. States that she does a lot of standing and lifting at work, and requests time off as well. MD Complaint: fall When Fall Occurred: # days [employer] (1) Fall Witnessed: no Place Fall Occurred: home Loss of Consciousness: none - Related Data Home Medications Medication Instructions Recorded Confirmed Amitriptyline HCl 10 mg PO HS 08/12/21 08/12/21 Indapamide 1.25 mg PO DAILY 08/12/21 08/12/21 Levothyroxine Sodium [Synthroid] 75 mcg PO DAILY 08/12/21 08/12/21 Loratadine [Claritin] 10 mg PO DAILY 08/12/21 08/12/21 Omeprazole 20 mg PO DAILY 08/12/21 08/12/21 Previous Rx's Medication Instructions Recorded Meloxicam [Mobic] 7.5 mg PO DAILY #20 tab 08/12/21 Allergies Allergy/AdvReac Type Severity Reaction Status Date / Time sulfamethoxazole Allergy Mild Unknown Verified 08/12/21 18:23 [From Bactrim] trimethoprim [From Bactrim] Allergy Mild Unknown Verified 08/12/21 18:23 aspirin Allergy Rash/Hives Verified 08/12/21 18:23 azithromycin Allergy Dyspnea Verified 08/12/21 18:23 [From Zithromax Z-Pernell] cefixime [From Suprax] Allergy Unknown Verified 08/12/21 18:23 hydrocodone bitartrate Allergy Rash/Hives Verified 08/12/21 18:23 [From Vicodin] influenza virus vaccine, Allergy Nausea & Verified 08/12/21 18:23 specific Vomiting & [Influenza Virus Diarrhea Vacc,Specific] latex Allergy Rash/Hives Verified 08/12/21 18:23 morphine Allergy Dyspnea Verified 08/12/21 18:23 Sulfa (Sulfonamide Allergy Unknown Verified 08/12/21 18:23 Antibiotics) tesiorganon Allergy Unknown Uncoded 02/06/20 07:02 Childhood Review of Systems ROS Statement: Those systems with pertinent positive or pertinent negative responses have been documented in the HPI. ROS Other: All systems not noted in ROS Statement are negative. 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 Absent: respiratory distress, wheezes, rales, rhonchi, stridor Cardiovascular Exam: Present: regular rate, normal rhythm, normal heart sounds. Absent: systolic murmur, diastolic murmur, rubs, gallop, clicks GI/Abdominal exam: Present: soft, normal bowel sounds. Absent: distended, tenderness, guarding, rebound, rigid Left Shoulder Exam: Present: normal inspection, other (ROM limited by pain, patient can lift arm 45 degrees when lying in bed before experiencing pain. ). Absent: tenderness, swelling, deformity, crepitus, erythema, tenderness over AC joint Upper Arm exam: Present: normal inspection. Absent: tenderness, swelling, laceration, ecchymosis Elbow exam: Present: normal inspection, full ROM. Absent: tenderness, swelling, ecchymosis, deformity Forearm Wrist exam: Present: normal inspection, full ROM. Absent: tenderness, swelling, ecchymosis, deformity Hand Wrist exam: Present: normal inspection, full ROM. Absent: tenderness, swelling, ecchymosis, deformity Left Hip exam: Present: normal inspection, full ROM. Absent: tenderness, swelling, ecchymosis, deformity Upper Leg exam: Present: normal inspection, full ROM. Absent: tenderness, swel ling, ecchymosis, deformity Gait: observed and normal Neurological exam: Present: alert, oriented X3, CN II-XII intact Psychiatric exam: Present: normal affect, normal mood Skin exam: Present: warm, dry, intact, normal color. Absent: rash Course Vital Signs 08/12/21 08/12/21 17:23 18:48 Temperature 98.2 F Pulse Rate 92 65 Respiratory 18 18 Rate Blood Pressure 130/82 136/97 O2 Sat by Pulse 98 100 Oximetry Medical Decision Making - Medical Decision Making This is a 40 year old female who presents to the emergency department after sustaining injuries to the left side of her body from a fall. Imaging obtained, which ruled out any acute fractures. Toradol offered for the pain, however the patient declined. Patient is able to ambulate normally. Will provide rx for meloxicam in the event that provides more relief than the motrin. Instructed her to avoid taking the meloxicam and motrin at the same time, however she can alternate with Tylenol for pain. Patient expressed understanding. Return precautions reviewed in depth, the patient is instructed to return to the emergency department if symptoms worsen or do not improve. Patient verbalized understanding. This case was discussed in detail with the attending ED physician. Presentation, findings, and treatment plan discussed in detail as well. - Radiology Data Radiology results: report reviewed, image reviewed Disposition Clinical Impression: Fall Disposition: HOME SELF-CARE Instructions (If sedation given, give patient instructions): Shoulder Sprain (ED), Arthralgia (ED), Fall Prevention (ED) Additional Instructions: Return to the emergency department if symptoms worsen or do not improve. Do not take Motrin or other antiinflammatories with the Meloxicam prescribed. Prescriptions: Meloxicam [Mobic] 7.5 mg PO DAILY #20 tab Is patient prescribed a controlled substance at d/c from ED?: No Referrals: Eusebia Meehan MD [Primary Care Provider] - 1-2 days
[2021-08-12 18:49] VITALS: BP 136/97; PULSE 65
== END 2021-08-12 19:05 | disposition home or self-care (01) ==
LOC: EC 17:19
DX: M79.10 Myalgia, unspecified site (principal); E07.9 Disorder of thyroid, unspecified; Z79.890 Hormone replacement therapy; Z88.2 Allergy status to sulfonamides; Z88.6 Allergy status to analgesic agent; Z88.1 Allergy status to other antibiotic agents; Z88.7 Allergy status to serum and vaccine; Z91.040 Latex allergy status; Z88.5 Allergy status to narcotic agent; W19.XXXA Unspecified fall, initial encounter
CPT/HCPCS: 73502; 96372; 99284

== ENCOUNTER 2022-03-16 16:50 | Emergency (ER) | payer OTHER ==
[2022-03-16 16:54] VITALS: TEMP 98.2
[2022-03-16] MEDS ORDERED: ACET/COD 300 MG/30 MG STARTER PACK 6 TAB BTL PO STA (17:28)
[2022-03-16] MEDS ORDERED: HYDROcodone/APAP 7.5-325MG 1 EACH TAB PO ONE (17:29)
--- NOTE | 2022-03-16 17:30 | ED ---
Upper Extremity HPI - General Chief Complaint: Extremity Injury, Upper Stated Complaint: L shoulder pain Time Seen by Provider: 03/16/22 17:01 Source: patient Mode of arrival: ambulatory Limitations: no limitations - History of Present Illness Initial Comments: Patient is a 41-year-old female presenting with chief complaint of left shoulder pain. Patient states the pain is been ongoing for several months. Patient denies any known injury. She states that her jobs often involve repetitive motions. Pain does not radiate into the chest or back or neck. She states she occasionally gets numbness and tingling. Patient saw an orthopedist through [place], she received an x-ray and was told that the findings were unremarkable and symptoms would improve. Patient admits to pain with range of motion, particularly with abduction and extension. Pain is mainly at the anterior portion of the shoulder. 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 She is been taking Tylenol, states that her doctor told her not to take Motrin due to interaction with her other medications. - Related Data Home Medications Medication Instructions Recorded Confirmed Amitriptyline HCl 10 mg PO HS 08/12/21 08/12/21 Indapamide 1.25 mg PO DAILY 08/12/21 08/12/21 Levothyroxine Sodium [Synthroid] 75 mcg PO DAILY 08/12/21 08/12/21 Loratadine [Claritin] 10 mg PO DAILY 08/12/21 08/12/21 Omeprazole 20 mg PO DAILY 08/12/21 08/12/21 Previous Rx's Medication Instructions Recorded Meloxicam [Mobic] 7.5 mg PO DAILY #20 tab 08/12/21 methylPREDNISolone Dose Pack 4 mg PO DIRECTED #1 packet 03/16/22 [Medrol Dose Pack] Allergies Allergy/AdvReac Type Severity Reaction Status Date / Time sulfamethoxazole Allergy Mild Unknown Verified 03/16/22 16:54 [From Bactrim] trimethoprim [From Bactrim] Allergy Mild Unknown Verified 03/16/22 16:54 aspirin Allergy Rash/Hives Verified 03/16/22 16:54 azithromycin Allergy Dyspnea Verified 03/16/22 16:54 [From Zithromax Z-Pernell] cefixime [From Suprax] Allergy Unknown Verified 03/16/22 16:54 hydrocodone bitartrate Allergy Rash/Hives Verified 03/16/22 16:54 [From Vicodin] influenza virus vaccine, Allergy Nausea & Verified 03/16/22 16:54 specific Vomiting & [Influenza Virus Diarrhea Vacc,Specific] latex Allergy Rash/Hives Verified 03/16/22 16:54 metronidazole Allergy Unknown Verified 03/16/22 16:54 morphine Allergy Dyspnea Verified 03/16/22 16:54 Sulfa (Sulfonamide Allergy Unknown Verified 03/16/22 16:54 Antibiotics) tesiorganon Allergy Unknown Uncoded 03/16/22 16:54 Childhood Review of Systems ROS Statement: Those systems with pertinent positive or pertinent negative responses have been documented in the HPI. ROS Other: All systems not noted in ROS Statement are negative. 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 Absent: scleral icterus, conjunctival injection, periorbital swelling Neck exam: Present: normal inspection Respiratory exam: Present: normal lung sounds bilaterally. Absent: respiratory distress, wheezes, rales, rhonchi, stridor Cardiovascular Exam: Present: regular rate, normal rhythm, normal heart sounds. Absent: systolic murmur, diastolic murmur, rubs, gallop, clicks Left Shoulder Exam: Present: normal inspection. Absent: full ROM (Secondary to pain), tenderness, swelling Upper Arm exam: Present: normal inspection Elbow exam: Present: normal inspection Neuro motor exam: Present: wrist extension intact, thumb opposition intact, thumb IP flexion intact, thumb adduction intact, fingers 2-5 abduction intact Neurosensory exam: Present: radial nerve intact, ulnar nerve intact, median ner ve intact Vascular: Absent: vascular compromise Neurological exam: Present: alert, oriented X3, CN II-XII intact Psychiatric exam: Present: normal affect, normal mood Skin exam: Present: warm, dry, intact, normal color. Absent: rash Course Vital Signs 03/16/22 03/16/22 16:52 17:59 Temperature 98.2 F Pulse Rate 87 70 Respiratory 16 18 Rate Blood Pressure 123/80 132/79 O2 Sat by Pulse 98 99 Oximetry Medical Decision Making - Medical Decision Making Patient is a 41-year-old female presenting with chief complaint of left shoulder pain. Pain is been ongoing for several months. No known injury or trauma, she was seen by an orthopedist through [place] who reported x-rays looked okay and pain should subside without intervention. Patient denies radiation of the pain into the chest, any shortness of breath, radiation of pain to the back. States pain is only present while moving the shoulder. On examination there is no tenderness to palpation, patient has limited range of motion secondary to pain. Has had previous x-rays performed and no new injuries. Educated the patient on supportive treatment and provided referral for orthopedics. Provided the patient with pain medication and arm sling. Follow-up with PCP. Report back to ER with any new or worsening symptoms. Discussed return parameters and answered all questions. Patient conveyed verbal understanding and agreed to the plan. I discussed this case in detail with my attending Dr. Watkins. Disposition Clinical Impression: Shoulder joint pain Disposition: HOME SELF-CARE Condition: Good Instructions (If sedation given, give patient instructions): Shoulder Sprain (ED), Shoulder Pain (ED) Additional Instructions: Follow-up with PCP and orthopedics. Report back to ER with any new or worsening symptoms. Take medication as prescribed. Prescriptions: methylPREDNISolone Dose Pack [Medrol Dose Pack] 4 mg PO DIRECTED #1 packet Is patient prescribed a controlled substance at d/c from ED?: No Referrals: Eusebia Meehan MD [Primary Care Provider] - 1-2 days Gab Reyes PAC [PHYSICIAN FLOUR TESTER] - 1-2 days Time of Disposition: 17:30
[2022-03-16 18:01] VITALS: BP 132/79; PULSE 70; RESP 18
== END 2022-03-16 18:00 | disposition home or self-care (01) ==
LOC: EC 16:50
DX: M25.512 Pain in left shoulder (principal); E07.9 Disorder of thyroid, unspecified; Z88.2 Allergy status to sulfonamides; Z88.1 Allergy status to other antibiotic agents; Z88.6 Allergy status to analgesic agent; Z91.040 Latex allergy status; Z88.7 Allergy status to serum and vaccine; Z88.8 Allergy status to other drugs, medicaments and biological substances; Z79.890 Hormone replacement therapy
CPT/HCPCS: 99282

== ENCOUNTER 2024-03-06 16:44 | Emergency (ER) | payer OTHER ==
[2024-03-06] MEDS: ONDANSETRON 4 MG/2 ML VIAL IVP STA (17:34)
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
--- NOTE | 2024-03-06 18:12 | XR ---
EXAMINATION TYPE: XR shoulder complete LT DATE OF EXAM: 03/06/2024 COMPARISON: 08/12/2021 HISTORY: Pain TECHNIQUE: Shoulder examined in 3 projections. FINDINGS: The humeral head articulates with the glenoid. The acromio-clavicular junction is normal. No acute fractures or dislocations are evident. A follow up study can be performed 7-10 days from acute trauma for continued pain. MRI can be perfor med if soft tissue evaluation would be of benefit. IMPRESSION: 1. No acute osseous shoulder abnormality. [facility], , 03/06/2024 6:10 PM
[2024-03-06 18:46] VITALS: BP 130/80; PULSE 76; RESP 16; TEMP 97.9
== END 2024-03-06 18:46 | disposition home or self-care (01) ==
LOC: EC 16:44
DX: V89.2XXA Person injured in unspecified motor-vehicle accident, traffic, initial encounter
CPT/HCPCS: 70450; 72125; 96374; 99285

== ENCOUNTER 2024-08-26 23:24 | Emergency (ER) | payer OTHER ==
[2024-08-26 23:35] VITALS: RESP 18; TEMP 100.2
[2024-08-27 00:41] LABS: Influenza A Not Detected (Not Detectd); Influenza B Detected (Not Detectd); RSV Not Detected (Not Detectd)
--- NOTE | 2024-08-27 00:43 | ED ---
General Adult HPI - General Chief complaint: Fever Stated complaint: cough,sore throat Time Seen by Provider: 08/26/24 23:36 Source: patient, RN notes reviewed, old records reviewed Mode of arrival: ambulatory Limitations: no limitations - History of Present Illness Initial comments: 44-year-old female presents with cough congestion fever. Patient's family member tested positive for influenza B. She has been sick for the past 2 days. No history of asthma. No difficulty breathing. - Related Data Home Medications Medication Instructions Recorded Confirmed Amitriptyline HCl 10 mg PO HS 08/12/21 08/12/21 Indapamide 1.25 mg PO DAILY 08/12/21 08/12/21 Levothyroxine Sodium [Synthroid] 75 mcg PO DAILY 08/12/21 08/12/21 Loratadine [Claritin] 10 mg PO DAILY 08/12/21 08/12/21 Omeprazole 20 mg PO DAILY 08/12/21 08/12/21 Previous Rx's Medication Instructions Recorded Meloxicam [Mobic] 7.5 mg PO DAILY #20 tab 08/12/21 methylPREDNISolone Dose Pack 4 mg PO DIRECTED #1 packet 03/16/22 [Medrol Dose Pack] Cyclobenzaprine [Flexeril] 10 mg PO TID PRN #15 tab 03/06/24 Oseltamivir [Tamiflu] 75 mg PO Q12HR #10 cap 08/27/24 Allergies Allergy/AdvReac Type Severity Reaction Status Date / Time sulfamethoxazole Allergy Mild Unknown Verified 03/06/24 17:04 [From Bactrim] trimethoprim [From Bactrim] Allergy Mild Unknown Verified 03/06/24 17:04 aspirin Allergy Rash/Hives Verified 03/06/24 17:04 azithromycin Allergy Dyspnea Verified 03/06/24 17:04 [From Zithromax Z-Pernell] cefixime [From Suprax] Allergy Unknown Verified 03/06/24 17:04 hydrocodone bitartrate Allergy Rash/Hives Verified 03/06/24 17:04 [From Vicodin] influenza virus vaccine, Allergy Nausea & Verified 03/06/24 17:04 specific Vomiting & [Influenza Virus Diarrhea Vacc,Specific] latex Allergy Rash/Hives Verified 03/06/24 17:04 metronidazole Allergy Unknown Verified 03/06/24 17:04 morphine Allergy Dyspnea Verified 03/06/24 17:04 Sulfa (Sulfonamide Allergy Unknown Verified 03/06/24 17:04 Antibiotics) tesiorganon Allergy Unknown Uncoded 03/06/24 17:04 Childhood Review of Systems ROS Statement: Those systems with pertinent positive or pertinent negative responses have been documented in the HPI. ROS Other: All systems not noted in ROS Statement are negative. 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 Absent: tenderness, meningismus Respiratory exam: Present: normal lung sounds bilaterally. Absent: respiratory distress Cardiovascular Exam: Present: regular rate, normal rhythm GI/Abdominal exam: Present: soft. Absent: distended, tenderness, guarding Neurological exam: Present: alert, oriented X3 Psychiatric exam: Present: normal affect, normal mood Skin exam: Present: warm, dry, intact. Absent: cyanosis, diaphoretic Course Vital Signs 08/26/24 08/26/24 23:31 23:44 Temperature 100.2 F H Pulse Rate 82 Respiratory 18 18 Rate Blood Pressure 142/82 O2 Sat by Pulse 98 Oximetry Medical Decision Making - Medical Decision Making Was pt. sent in by a medical professional or institution (, PA, SAND PLANT ATTENDANT, urgent care, hospital, or [facility]...) When possible be specific @ -No Did you speak to anyone other than the patient for history (EMS, parent, family, police, friend...)? What history was obtained from this source @ -No Did you review nursing and triage notes (agree or disagree)? Why? @ -I reviewed and agree with nursing and triage notes Were old charts reviewed (outside hosp., previous admission, EMS record, old EKG, old radiological studies, urgent care reports/EKG's, [facility] records)? Report findings @ -No old charts were reviewed Differential Diagnosis flulike illness EKG interpreted by me (3pts min.). @ -As above X-rays interpreted by me (1pt min.). @ -None done CT interpreted by me (1pt min.). @ -None done U/S interpreted by me (1pt. min.). @ -None done What testing was considered but not performed or refused? (CT, X-rays, U/S, labs)? Why? @ -None What meds were considered but not given or refused? Why? @ -None Did you discuss the management of the patient with other professionals (professionals i.e. , PA, SAND PLANT ATTENDANT, lab, RT, psych nurse, social service agency director, trial lawyer, teacher, classification officer, telehealth case manager)? Give summary @ -No Was smoking cessation discussed for >3mins.? @ -No Was critical care preformed (if so, how long)? @ -No Were there social determinants of health that impacted care today? How? (Homelessness, low income, unemployed, alcoholism, drug addiction, transportation, low edu. Level, literacy, decrease access to med. care, prison, rehab)? @ -No Was there de-escalation of care discussed even if they declined (Discuss DNR or withdrawal of care, Hospice)? DNR status @ -No What co-morbidities impacted this encounter? (DM, HTN, Smoking, COPD, CAD, Cancer, CVA, ARF, Chemo, Hep., AIDS, mental health diagnosis, sleep apnea, morbid obesity)? @ -None Was patient admitted / discharged? Hospital course, mention meds given and route, prescriptions, significant lab abnormalities, going to OR and other pertinent info. @ -44-year-old female with flulike illness testing positive for influenza B. Patient is otherwise well-appearing with stable vitals. Symptoms have been present for the past 1 to 2 days she will be started on Tamiflu. She will take Tylenol Motrin for pain and fever. She is instructed to maintain hydration. Undiagnosed new problem with uncertain prognosis? @ -No Drug Therapy requiring intensive monitoring for toxicity (Heparin, Nitro, Insulin, Cardizem)? @ -No Were any procedures done? @ -No Diagnosis/symptom? @Influenza Acute, or Chronic, or Acute on Chronic? @ -Acute Uncomplicated (without systemic symptoms) or Complicated (systemic symptoms)? @ -Default Side effects of treatment? @ -No Exacerbation, Progression, or Severe Exacerbation? @ -No Poses a threat to life or bodily function? How? (Chest pain, [place], [place], pneumonia, PE, COPD, DKA, ARF, appy, cholecystitis, CVA, Diverticulitis, Homicidal, Suicidal, threat to staff... and all critical care pts) @ -No - Lab Data Lab Results 08/26/24 Range/Units 23:43 Influenza Type A (PCR) Not Detected (Not Detectd) Influenza Type B (PCR) Detected A (Not Detectd) RSV (PCR) Not Detected (Not Detectd) SARS-CoV-2 (PCR) Not Detected (Not Detectd) Disposition Clinical Impression: Influenza Disposition: HOME SELF-CARE Condition: Fair Instructions (If sedation given, give patient instructions): Fever in Adults (ED), Influenza (ED) Prescriptions: Oseltamivir [Tamiflu] 75 mg PO Q12HR #10 cap Is patient prescribed a controlled substance at d/c from ED?: No Referrals: None,Stated [Primary Care Provider] - 1-2 days Time of Disposition: 00:43
[2024-08-27 00:50] VITALS: BP 140/81; PULSE 78
== END 2024-08-27 00:50 | disposition home or self-care (01) ==
LOC: EC 23:24
DX: J10.1 Influenza due to other identified influenza virus with other respiratory manifestations (principal); Z88.2 Allergy status to sulfonamides; Z91.040 Latex allergy status; Z88.5 Allergy status to narcotic agent; Z88.1 Allergy status to other antibiotic agents; Z88.7 Allergy status to serum and vaccine; Z88.6 Allergy status to analgesic agent; Z88.8 Allergy status to other drugs, medicaments and biological substances
CPT/HCPCS: 87636; 99283

== ENCOUNTER 2024-12-05 23:38 | Emergency (ER) | payer OTHER ==
[2024-12-05 23:42] VITALS: PULSE 78; RESP 18
--- NOTE | 2024-12-06 00:43 | ED ---
General Adult HPI - General Chief complaint: ENT Stated complaint: Throat pain, abd pain Time Seen by Provider: 12/06/24 00:08 Source: patient, RN notes reviewed Mode of arrival: ambulatory Limitations: no limitations - History of Present Illness Initial comments: 44-year-old female presents to the emergency department for evaluation of sore throat. She notes that she has been dealing with this for around 1 week. She notes today that her voice has become strained. She endorses mild cough. Denies any fever, chills. Denies any nasal congestion or rhinorrhea. - Related Data Home Medications Medication Instructions Recorded Confirmed Amitriptyline HCl 10 mg PO HS 08/12/21 08/12/21 Indapamide 1.25 mg PO DAILY 08/12/21 08/12/21 Levothyroxine Sodium [Synthroid] 75 mcg PO DAILY 08/12/21 08/12/21 Loratadine [Claritin] 10 mg PO DAILY 08/12/21 08/12/21 Omeprazole 20 mg PO DAILY 08/12/21 08/12/21 Previous Rx's Medication Instructions Recorded Meloxicam [Mobic] 7.5 mg PO DAILY #20 tab 08/12/21 methylPREDNISolone Dose Pack 4 mg PO DIRECTED #1 packet 03/16/22 [Medrol Dose Pack] Cyclobenzaprine [Flexeril] 10 mg PO TID PRN #15 tab 03/06/24 Oseltamivir [Tamiflu] 75 mg PO Q12HR #10 cap 08/27/24 Allergies Allergy/AdvReac Type Severity Reaction Status Date / Time sulfamethoxazole Allergy Mild Unknown Verified 12/05/24 23:42 [From Bactrim] trimethoprim [From Bactrim] Allergy Mild Unknown Verified 12/05/24 23:42 aspirin Allergy Rash/Hives Verified 12/05/24 23:42 azithromycin Allergy Dyspnea Verified 12/05/24 23:42 [From Zithromax Z-Pernell] cefixime [From Suprax] Allergy Unknown Verified 12/05/24 23:42 hydrocodone bitartrate Allergy Rash/Hives Verified 12/05/24 23:42 [From Vicodin] influenza virus vaccine, Allergy Nausea & Verified 12/05/24 23:42 specific Vomiting & [Influenza Virus Diarrhea Vacc,Specific] latex Allergy Rash/Hives Verified 12/05/24 23:42 metronidazole Allergy Unknown Verified 12/05/24 23:42 morphine Allergy Dyspnea Verified 12/05/24 23:42 Sulfa (Sulfonamide Allergy Unknown Verified 12/05/24 23:42 Antibiotics) tesiorganon Allergy Unknown Uncoded 12/05/24 23:42 Childhood Review of Systems ROS Statement: Those systems with pertinent positive or pertinent negative responses have been documented in the HPI. ROS Other: All systems not noted in ROS Statement are negative. 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 Absent: scleral icterus, conjunctival injection, periorbital swelling ENT exam: Present: normal exam, mucous membranes moist Neck exam: Present: normal inspection. Absent: tenderness, meningismus, l ymphadenopathy Respiratory exam: Present: normal lung sounds bilaterally. Absent: respiratory distress, wheezes, rales, rhonchi, stridor Cardiovascular Exam: Present: regular rate, normal rhythm, normal heart sounds. Absent: systolic murmur, diastolic murmur, rubs, gallop, clicks Extremities exam: Present: normal inspection, full ROM, normal capillary refill. Absent: tenderness, pedal edema, joint swelling, calf tenderness Neurological exam: Present: alert, oriented X3 Psychiatric exam: Present: normal affect, normal mood Skin exam: Present: warm, dry, intact, normal color. Absent: rash Course Vital Signs 12/05/24 12/06/24 23:39 02:10 Temperature 97.7 F 97.8 F Pulse Rate 78 78 Respiratory 18 18 Rate Blood Pressure 137/87 130/79 O2 Sat by Pulse 97 99 Oximetry Medical Decision Making - Medical Decision Making Was pt. sent in by a medical professional or institution (, PA, RESEARCH TECH, urgent care, hospital, or [facility]...) When possible be specific @ -No Did you speak to anyone other than the patient for history (EMS, parent, family, police, friend...)? What history was obtained from this source @ -No Did you review nursing and triage notes (agree or disagree)? Why? @ -I reviewed and agree with nursing and triage notes Were old charts reviewed (outside hosp., previous admission, EMS record, old EKG, old radiological studies, urgent care reports/EKG's, [facility] records)? Report findings @ -No old charts were reviewed Differential Diagnosis (chest pain, altered mental status, abdominal pain women, abdominal pain men, vaginal bleeding, weakness, fever, dyspnea, syncope, headache, dizziness, GI bleed, back pain, seizure, CVA, palpatations, mental health, musculoskeletal)? @ -COVID, influenza, RSV, strep pharyngitis, pneumonia, this list is not all inclusive. EKG interpreted by me (3pts min.). @ -None X-rays interpreted by me (1pt min.). @ -None done CT interpreted by me (1pt min.). @ -None done U/S interpreted by me (1pt. min.). @ -None done What testing was considered but not performed or refused? (CT, X-rays, U/S, labs)? Why? @ -None What meds were considered but not given or refused? Why? @ -None Did you discuss the management of the patient with other professionals (professionals i.e. , PA, RESEARCH TECH, lab, RT, psych nurse, rn social services, coater slate, teacher, forest fire officer, wrapper caser)? Give summary @ -No Was smoking cessation discussed for >3mins.? @ -No Was critical care preformed (if so, how long)? @ -No Were there social determinants of health that impacted care today? How? (Homelessness, low income, unemployed, alcoholism, drug addiction, transportation, low edu. Level, literacy, decrease access to med. care, [facility], rehab)? @ -No Was there de-escalation of care discussed even if they declined (Discuss DNR or withdrawal of care, Hospice)? DNR status @ -No What co-morbidities impacted this encounter? (DM, HTN, Smoking, COPD, CAD, Cancer, CVA, ARF, Chemo, Hep., AIDS, mental health diagnosis, sleep apnea, morbid obesity)? @ -None Was patient admitted / discharged? Hospital course, mention meds given and route, prescriptions, significant lab abnormalities, going to OR and other pertinent info. @Discharge. Patient presented emergency department for sore throat and loss of voice. Patient was tested for COVID, influenza, RSV, strep pharyngitis which were negative. Discussed with patient that she likely has another viral illness causing the laryngitis. Patient was given a dose of steroids in the emergency department. She had is advised symptomatic treatment at home. She is understanding agreeable with plan. Patient stable at time of discharge. Case discussed with Dr. Bass. Undiagnosed new problem with uncertain prognosis? @ -No Drug Therapy requiring intensive monitoring for toxicity (Heparin, Nitro, Insulin, Cardizem)? @ -No Were any procedures done? @ -No Diagnosis/symptom? @ -laryngitis Acute, or Chronic, or Acute on Chronic? @ -acute Uncomplicated (without systemic symptoms) or Complicated (systemic symptoms)? @ -uncomplicated Side effects of treatment? @ -No Exacerbation, Progression, or Severe Exacerbation? @ -No Poses a threat to life or bodily function? How? (Chest pain, [place], [place], pneumonia, PE, COPD, DKA, ARF, appy, cholecystitis, CVA, Diverticulitis, Homicidal, Suicidal, threat to staff... and all critical care pts) @ -No - Lab Data Lab Results 12/05/24 12/06/24 Range/Units 23:43 00:43 Influenza Type A (PCR) Not Detected (Not Detectd) Influenza Type B (PCR) Not Detected (Not Detectd) RSV (PCR) Not Detected (Not Detectd) SARS-CoV-2 (PCR) Not Detected (Not Detectd) Group A Strep (PCR) NOT DETECTED (Not Detectd) Disposition Clinical Impression: Laryngitis Disposition: HOME SELF-CARE Condition: Stable Instructions (If sedation given, give patient instructions): Pharyngitis (ED) Is patient prescribed a controlled substance at d/c from ED?: No Referrals: None,Stated [Primary Care Provider] - 1-2 days
[2024-12-06 01:46] LABS: Influenza A Not Detected (Not Detectd); Influenza B Not Detected (Not Detectd); RSV Not Detected (Not Detectd)
[2024-12-06] MEDS: dexAMETHasone 2 MG TAB PO STA (01:48)
[2024-12-06 02:11] VITALS: BP 130/79; TEMP 97.8
== END 2024-12-06 02:29 | disposition home or self-care (01) ==
LOC: EC 23:38
DX: J04.0 Acute laryngitis (principal); Z88.1 Allergy status to other antibiotic agents; Z88.2 Allergy status to sulfonamides; Z88.5 Allergy status to narcotic agent; Z88.7 Allergy status to serum and vaccine; Z91.040 Latex allergy status; Z88.6 Allergy status to analgesic agent; Z88.8 Allergy status to other drugs, medicaments and biological substances
CPT/HCPCS: 87651; 87636; 99284; J8540